=== PATIENT | male | born 1945 | race Caucasian/White ===

== ENCOUNTER 2020-03-21 15:00 | IRF | payer BC, SELFPAY ==
--- NOTE | ~2020-03-21 | CT_ITS ---
EXAMINATION: CT brain wo con EXAM DATE: 03/28/2020 10:47 INDICATION: Follow-up trauma. TECHNIQUE: Spiral CT of the head was performed without contrast. Axial, coronal and sagittal images were reviewed. The dose-length product (DLP) for this examination was 681.00 mGy-cm. The exposure w as tailored according to patient size, and iterative reconstruction (ASIR) was used as additional dos e reduction technique. There is no prior study for comparison. FINDINGS: There is a right-sided ventricular shunt entering the ventricle posteriorly, tip just cross ing the midline. The ventricles are normal in size. There are 4 other milena holes. There is hyperdense right-sided subdural hematoma, density suggesting acute component to this. This extends around the e ntire right cerebral hemisphere with maximal thickness of 1.6 cm, is causing 6 mm leftward midline sh ift, effacement of the left-sided sulci. No transtentorial herniation. There is a much smaller and lo wer density left-sided subdural hematoma, subacute appearance. Comparison with prior study would be h elpful. No mass or evidence of intraparenchymal or hematoma. There are no acute fractures identified. Sinuses and mastoid air cells are well aerated. Orbits and soft tissues unremarkable. IMPRESSION: 1. Moderate to large right-sided subdural hematoma with acute component suspected, up to 1.6 cm in t hickness with mild subfalcine herniation, midline shift. Comparison with prior study would be helpful . 2. Small subacute left subdural hematoma. 3. Right ventricular shunt in position. Reviewed, dictated and finalized at location A. IMPRESSION: 1. Moderate to large right-sided subdural hematoma with acute component suspec derrell, up to 1.6 cm in thickness with mild subfalcine herniation, midline shift. Comparison with prior study would be helpful. 2. Small subacute left subdural hematoma. 3. Right ventricular shunt in position.
--- NOTE | 2020-03-21 15:34 | ADMGEN ---
Arrived via personal vehicle with spouse at 1500. This patient, Rolan Mcwilliams, was admitted to [facility] Room 220-02. Patient/family oriented to hospital policies and general routines including ID bracelet, bed and alarms, visiting hours, pain management, procedures, bathroom and other care routines, personal items, smoking policy, room service/diet, and visiting hours. Valuables list has been completed. Information on how to activate the Rapid Response Team has been discussed. Patient/Family are encouraged to report perceived risks to care and to ask questions if they do not understand what they are told or what they should do.
[2020-03-21 16:10] VITALS: BP 147/90; PULSE 85; RESP 18; TEMP 36.9; O2SAT 95
[2020-03-21 16:11] VITALS: BMI 30.3
[2020-03-21 16:16] VITALS: BMI 30.3
[2020-03-21] MEDS: ACETAMINOPHEN 500 MG TABLET PO (17:35)
[2020-03-21] MEDS: DOCUSATE SODIUM 100 MG CAPSULE PO (17:35)
[2020-03-21 20:00] VITALS: O2SAT 94
[2020-03-21] MEDS: ATORVASTATIN 10 MG TABLET PO (21:46)
[2020-03-21] MEDS: HEPARIN SODIUM 5,000 UNITS/ML VIAL 5000 UNITS SUB-Q (21:47)
[2020-03-21] MEDS: PANTOPRAZOLE 40 MG TABLET PO (21:47)
[2020-03-21] MEDS: FENOFIBRATE NANOCRYSTALLIZED 145 MG TABLET PO (21:47)
[2020-03-21 22:00] VITALS: BP 126/65; PULSE 83; RESP 20; TEMP 36.8; O2SAT 94
[2020-03-21] MEDS: CALCIUM CARBONATE (TUMS) 500 MG (200 MG ELEMENTAL) PO (22:03)
[2020-03-22 05:19] LABS: Basophils Absolute Auto 0.1 K/mm3 (0.0-0.1); Basophils Percent Auto 0.7 % (0.2-1.2); Eosinophils Absolute Auto 0.2 K/mm3 (0-0.3); Eosinophils Percent Auto 2.2 % (0-4.4); Hematocrit 40.7 % (42.0-52.0); Hemoglobin 13.3 g/dL (14.0-18.0); Lymphocytes Absolute Auto 2.37 K/mm3 (0.9-3.2); Lymphocytes Percent Auto 23.1 % (18.3-44.2); Mean Corpuscular HGB Conc 32.7 g/dl (32-36); Mean Corpuscular Hemoglobin 28.9 pg (26-34); Mean Corpuscular Volume 88.3 fl (80-100); Mean Platelet Volume 8.7 fl (7.4-10.4); Monocytes Absolute Auto 0.9 K/mm3 (0.1-0.6); Monocytes Percent Auto 8.5 % (2.6-8.5); Neutrophils Absolute Auto 6.6 K/mm3 (1.3-6.7); Neutrophils Percent Auto 64.5 % (45.5-73.1); Platelet Count Result 427 k/mm3 (150-375); Red Blood Count 4.61 M/mm3 (4.6-6.20); Red Cell Distribution Width 12.9 % (11.5-14.5); White Blood Count 10.3 K/mm3 (4.5-10.0)
[2020-03-22 05:31] LABS: Anion Gap 8 mmol/L (8-16); Blood Urea Nitrogen 18 mg/dL (9-20); Calcium 9.4 mg/dL (8.4-10.2); Carbon Dioxide 29 mmol/L (22-30); Chloride 100 mmol/L (98-107); Estimated CRCL calculation 66 ml/min; Estimated Glomerular Filt Rate > 60; Glucose 131 mg/dL (75-110); Potassium 4.5 mmol/L (3.4-5.0); Sodium 137 mmol/L (137-145)
[2020-03-22 06:00] VITALS: BP 143/76; PULSE 88; RESP 20; TEMP 36.4; O2SAT 98
[2020-03-22] MEDS: CALCIUM CARBONATE (TUMS) 500 MG (200 MG ELEMENTAL) PO ×3 (06:42→20:55)
[2020-03-22] MEDS: HEPARIN SODIUM 5,000 UNITS/ML VIAL 5000 UNITS SUB-Q ×3 (06:43→20:54)
[2020-03-22 06:51] LABS: Glucose Point of Care 134 (65-105)
[2020-03-22 08:51] VITALS: PULSE 88
[2020-03-22] MEDS: PANTOPRAZOLE 40 MG TABLET PO ×2 (08:51→20:55)
[2020-03-22] MEDS: DOCUSATE SODIUM 100 MG CAPSULE PO ×2 (08:51→18:54)
[2020-03-22] MEDS: TAMSULOSIN HCL 0.4 MG CAPSULE PO (08:51)
[2020-03-22] MEDS: METOPROLOL SUCCINATE EXT REL 25 MG TABCR PO (08:51)
[2020-03-22] MEDS: ACETAMINOPHEN 500 MG TABLET PO ×2 (08:55→20:55)
--- NOTE | 2020-03-22 10:21 | PM.IMHP ---
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 The patient is a 74-year-old right-handed white male who is awake and alert 40 lucid and has sense of humor with a past medical history of cerebral ventriculomegaly and normal pressure hydrocephalus status post shunt placement in August of this year, hypertension, hyperlipidemia, diabetes mellitus, ventricular premature dipole rise a sen, and gastroesophageal reflux disease who presented to [facility] on March 12, 2020 with confusion after a possible fall. The patient remembered and nothing about the day and did not remember going to bed the night before presentation. Reportedly the patient crawled to the emergency department back door after a fall off his bike. There was a blood trail down the driveway according to the patient's and his glasses and bike were found on the top of a rack and. The patient also reported the patient was his usual self the day before and walk the dogs few different times and rode his bike as he does every morning. The also reported the patient went camping over the weekend and was confused the majority of the day on Thursday but was back to his usual self on Thursday morning that is prior to his emergency room visit. The CT scan showed acute on chronic bilateral subdural hematoma. Neurosurgery was consulted and the patient was admitted. The patient was given Keppra for seizure prophylaxis. She he underwent by bifrontal milena hole, right frontal and parietal, left parietal and frontal for subdural hematoma evacuation and March 12, 2020. The patient had a ZACHARIAH drain placed in the right and the left. The patient will remain at 8 inch for at least 4 weeks and likely will slowly down trained his valve setting periods the right ZACHARIAH drain was removed on March 14, 2020. The left APB drain was removed on March 15, 2020. On March 15, 2020 the patient experience dyspnea tachycardia and low-grade fever. A CTA revealed bilateral pulmonary embolisms, subcutaneous heparin was initiated and IVC filter was placed on March 16, 2020. The patient recovered well. Physical examination continues to reveal right lower extremity flaccid paralysis with new right footdrop, impaired balance decreased endurance and decreased strength. MRI of the lumbar spine was performed and showed age-appropriate spinal stenosis but not rising to the level that would account for his deficit. Neurosurgery suspected that this deficit is due to brain compression and expected to improve with time. On March 19, 2020 the patient complained of left calf pain and Doppler was ordered and imaging revealed DVT /PE suspected to be provoked by acute illness. IVC filter remains in place. The patient will be discharged to rehab on subcutaneous heparin t.i.d. for DVT prophylaxis. Patient to follow up in [facility]surgery Outpatient [facility] on March 30, 2020 at 11:[address] head to be done on the day of appointment or the day before so imaging can be reviewed in clinic. A loretta to be removed at the time. If imaging is stable and no new bleeds they will consider starting full anticoagulation to address bilateral PEs and bilateral lower extremity DVTs and removal of the IC filter. This will be managed by Hematology in which they were consulted before The patient has not traveled outside the [place] or had contact with someone who is ill that has traveled outside the [place] in the past 21 days. The patient has not traveled to an area of the [place] that is experiencing no transmission of the Coronavirus and has not had close personal contact with anyone that has. The patient does not have a fever. Th
[2020-03-22 12:50] VITALS: BMI 30.3
[2020-03-22] MEDS: HYDROcodone/acetaminophen (*CRX) 5-325 MG TABLET 1 TAB PO (13:18)
[2020-03-22 14:00] VITALS: BP 140/71; PULSE 78; RESP 20; TEMP 36.6; O2SAT 98
[2020-03-22 20:00] VITALS: O2SAT 93
[2020-03-22] MEDS: ATORVASTATIN 10 MG TABLET PO (20:54)
[2020-03-22] MEDS: FENOFIBRATE NANOCRYSTALLIZED 145 MG TABLET PO (20:55)
[2020-03-22] MEDS: SALINE 0.65% NAS SOLN 44 ML BTL 1 SPRAY NASAL (20:55)
[2020-03-22 21:34] VITALS: BP 120/52; PULSE 86; RESP 14; TEMP 36.7; O2SAT 93
[2020-03-23 06:00] VITALS: BP 148/68; PULSE 78; RESP 12; TEMP 37.1; O2SAT 98
[2020-03-23 06:48] LABS: Glucose Point of Care 123 (65-105)
[2020-03-23] MEDS: HEPARIN SODIUM 5,000 UNITS/ML VIAL 5000 UNITS SUB-Q ×3 (06:52→20:10)
[2020-03-23 09:31] VITALS: PULSE 78
[2020-03-23] MEDS: PANTOPRAZOLE 40 MG TABLET PO ×2 (09:31→20:09)
[2020-03-23] MEDS: DOCUSATE SODIUM 100 MG CAPSULE PO ×2 (09:31→17:33)
[2020-03-23] MEDS: METOPROLOL SUCCINATE EXT REL 25 MG TABCR PO (09:31)
[2020-03-23] MEDS: TAMSULOSIN HCL 0.4 MG CAPSULE PO (09:31)
--- NOTE | 2020-03-23 10:49 | RPD ---
INDIVIDUALIZED PLAN OF CARE FOR Rolan Mcwilliams Brief Synthesis of Pre-Admission Screen, Post-Admission Evaluation and Therapy Evaluations: The patient presents to rehab with acute on chronic bilateral intracranial subdural hematomas status post subdural evacuation. Comorbidities include hypertension, hyperlipidemia, gastroesophageal reflux disease, type 2 diabetes mellitus, low back pain, allergic rhinitis, benign prostatic hypertrophy, abnormal gait, pneumocephalus, normal pressure hydrocephalus, ventricular shunt, headache, bilateral DVT, bilateral PE's, IVC filter placement, right lower extremity flaccid paralysis, dyspnea on exertion 2/2 PE. The complexity of the patient's medical management, nursing, and therapy needs require an inpatient rehab hospital stay with a physician-led interdisciplinary team approach. The patient?s needs will be best met in an intensive program vs. at a lower level of care. The patient requires physician services for neurology services, medical oversight, and coordination of care. The patient needs physician monitoring and treatment of anemia, perioperative blood loss, bilateral pulmonary embolisms, monitoring for adverse reactions to new medications, monitoring of infection, pain control. The patient requires nursing services for frequent neuro checks, anticoagulation therapy, medication management and education, pressure relief and skin care management, monitoring of labs, diabetes management and education, and fall/safety precautions. Deficits include:ADLs, Balance, Endurance, Family Training/Education, Mobility, Pain Management, ROM, Safety, Strength, and Transfers. Crosscutter Rolled Glass/Case Management for: Discharge Planning and Patient/Family Counseling Physical Therapy: 5 days per week for 90 minutes. Treatments may include: Therapeutic Exercise, Gait Training, Neuromuscular Re-education, Transfer Training, Community Reintegration, Bed Mobility, Patient/Family Education, Wheelchair Mobility Group Therapy/Concurrent Therapy Rationales: -Improve attention span during functional activities in a distracted environment. -Enhance problem solving and/or adequate judgment skills during functional activities in a distracted environment. -Promote increased safety awareness in a distracted environment to reduce fall risk with functional tasks, transfers, and ambulation to allow a more safe, self-sufficient return to the home environment. -Improve dynamic balance skills to promote safety and independence with functional activities in a distracted environment for maximum gain. Occupational Therapy: 5 days per week for 90 minutes. Treatments may include: Therapeutic Exercise, Therapeutic Activity, Cognitive Training, Self-Care Transfer Training, Community Reintegration, Home Management, Patient/Family Education, Wheelchair Mobility Training, Energy Conservation Training Group Therapy/Concurrent Therapy Rationales: -Allow therapist to observe and teach generalization and carry-over of skills learned in individual therapy. -Enhance problem solving and sequencing skills during therapeutic activities in a distracted environment. -Promote increased safety awareness in a realistic setting to reduce fall risk with functional tasks due to visual and verbal distractions. -Increase functional level with ADLs, ADL transfers and use of adaptive equipment through therapeutic activities with others while promoting safety to allow a more safe, self-sufficient return home. Medical Prognosis: Good Anticipated Length of Stay: 10 days Rehab Goals: Eating Goal: 06-Independent Oral Hygiene Goal: 06-Independent Toileting Hygiene Goal: 06-Independent Shower/Bathe Self Goal: 06-Independent Upper Body Dressing Goal: 06-Independent Lower Body Dressing Goal: 06-Independent Putting On/Taking Off Footwear Goal: 06-Independent Rolling Left and Right Goal: 06-Independent Sit to Lying Goal: 06-Independent Lying to Sitting on Side of Bed Goal: 06-Independent Sit to St
--- NOTE | 2020-03-23 11:29 | WPDNEURORHBP ---
Subjective Date/time seen: 03/23/20 11:29 Interval history: this 74-year-old gentleman with a background history of having had NPH status post shunting is here after having had removal of bilateral subdural hematoma by milena holes his shunt is presently off and that needs to be resumed when he goes back for the follow-up to the Neurosurgery at the tertiary care facility the patient is supposed to be off aspirin and Coumadin for 2 weeks and that will be started on April 05, 2020 Patient is to follow up with Neurosurgery on March 30 according to the notes available for the review The patient denies any headache nausea vomiting chest pain shortness of breath fever chills sore throat Review of Systems Review of Systems: All systems reviewed & are unremarkable except as noted in HPI and below Functional Status Ambulation Ability Ability to Ambulate 10 Feet: Contact Guard Ability to Ambulate 50 Feet With 2 Turns: Contact Guard Ability to Ambulate 150 Feet: Contact Guard Ambulation Assistive Devices: Cane and Walker, Wheeled Transfers Ability Ability to Transfer In/Out of Chair: Standby Assistance Exam Const: General: comfortable and no acute distress HENMT: General nose exam: Normal nares present Mouth: Yes moist mucous membranes Eyes: General: appearance normal, both eyes and all related structures Neck: Neck: supple and no JVD Resp: Effort & Inspection: normal respiratory effort Auscultation: clear to auscultation bilaterally Cardio: Rate: regular rate Rhythm: regular rhythm GI: GI Palp: Yes Soft to palpation Auscultation: normal bowel sounds Skin: General skin exam: normal color and no rashes or lesions noted Neuro: Other: patient is awake alert well oriented however amnesia of the fall and of course followed by the subdural hematoma his leg weakness primarily right more than the left is improving overall and engage in therapy Extrem: General: normal to inspection Psych: Mental Status: mental status grossly normal Objective Data Vital Signs Vital Signs: Vital Signs - 24 hr 03/22/20 14:00 03/22/20 20:00 03/22/20 21:34 Temperature 36.6 C 36.7 C Pulse Rate 78 86 Respiratory Rate 20 14 Blood Pressure 140/71 120/52 L Pulse Oximetry 98 93 93 03/23/20 06:00 03/23/20 09:31 Temperature 37.1 C Pulse Rate 78 78 Respiratory Rate 12 Blood Pressure 148/68 H Pulse Oximetry 98 Intake/Output Intake/Output: Intake & Output 03/20/20 03/21/20 03/22/20 03/23/20 23:59 23:59 23:59 23:59 Intake Total 240 720 240 Balance 240 720 240 Meds/Results Medications: Active Medications Generic Name Dose Route Start Last Admin Trade Name Freq PRN Reason Stop Dose Admin Acetaminophen 500 mg 03/21/20 16:07 03/22/20 20:55 Tylenol Tablet PO 500 mg Q6H PRN Administration Pain, Mild Hydrocodone Bitart/Acetaminophen 1 tab 03/21/20 16:07 03/22/20 13:18 [place] 5-325 Mg PO 1 tab Q6H PRN Administration Pain, Moderate Atorvastatin Calcium 10 mg 03/21/20 21:00 03/22/20 20:54 Lipitor PO 10 mg HS LYDIA Administration Calcium Carbonate 200 mg 03/21/20 20:53 03/22/20 20:55 Tums PO 200 mg Q6H PRN Administration Indigestion Dextrose 12.5 gm 03/21/20 16:10 Dextrose 50% Syringe IV PUSH PRN PRN Hypoglycemia Protocol Docusate Sodium 100 mg 03/21/20 17:00 03/23/20 09:31 Colace Capsule PO 100 mg BID LYDIA Administration Fenofibrate 145 mg 03/21/20 21:00 03/22/20 20:55 Tricor PO 145 mg HS LYDIA Administration Glucagon 1 mg 03/21/20 16:10 Glucagon For Inj IM PRN PRN Hypoglycemia Protocol Glucose 15 gm 03/21/20 16:10 Glutose 15 PO PRN PRN Hypoglycemia Protocol Heparin Sodium (Porcine) 5,000 units 03/21/20 22:00 03/23/20 06:52 Heparin Sodium SUB-Q 5,000 units Q8HR LYDIA Administration Dextrose 1,000 mls @ 100 mls/hr 03/21/20 16:10 Dextrose 5% 1,000 Ml IVPB PRN
[2020-03-23] MEDS: HYDROcodone/acetaminophen (*CRX) 5-325 MG TABLET 1 TAB PO (13:23)
[2020-03-23 14:00] VITALS: BP 152/76; PULSE 87; RESP 20; TEMP 36.6; O2SAT 100
[2020-03-23] MEDS: ATORVASTATIN 10 MG TABLET PO (20:09)
[2020-03-23] MEDS: FENOFIBRATE NANOCRYSTALLIZED 145 MG TABLET PO (20:09)
[2020-03-23 22:12] VITALS: BP 126/59; PULSE 73; RESP 20; TEMP 36.7; O2SAT 95
[2020-03-24] MEDS: HYDROcodone/acetaminophen (*CRX) 5-325 MG TABLET 1 TAB PO ×2 (00:07→11:27)
[2020-03-24] MEDS: HEPARIN SODIUM 5,000 UNITS/ML VIAL 5000 UNITS SUB-Q ×3 (05:46→20:21)
[2020-03-24 06:00] VITALS: BP 143/55; PULSE 69; RESP 20; TEMP 36.7; O2SAT 99
[2020-03-24 06:51] LABS: Glucose Point of Care 115 (65-105)
[2020-03-24 09:06] VITALS: PULSE 69
[2020-03-24] MEDS: METOPROLOL SUCCINATE EXT REL 25 MG TABCR PO (09:06)
[2020-03-24] MEDS: PANTOPRAZOLE 40 MG TABLET PO ×2 (09:06→20:20)
[2020-03-24] MEDS: DOCUSATE SODIUM 100 MG CAPSULE PO ×2 (09:06→17:43)
[2020-03-24] MEDS: TAMSULOSIN HCL 0.4 MG CAPSULE PO (09:06)
[2020-03-24] MEDS: CALCIUM CARBONATE (TUMS) 500 MG (200 MG ELEMENTAL) PO (11:27)
--- NOTE | 2020-03-24 12:06 | WPDNEURORHBP ---
Subjective Date/time seen: 03/24/20 12:06 74 years old right-handed male admitted to the rehab with the chief complaint of brain dysfunction of traumatic in nature in addition to the history of ventriculomegaly and normal pressure hydrocephalus for which she has undergone shunt placement in August of this year, hypertension, hyperlipidemia, diabetes mellitus and GERD in addition to the history of recent fall resulting in confusion. Routine lab is normal Review of Systems Review of Systems: All systems reviewed & are unremarkable except as noted in HPI and below Functional Status Ambulation Ability Ability to Ambulate 10 Feet: Independent Ability to Ambulate 50 Feet With 2 Turns: Independent Ability to Ambulate 150 Feet: Independent Ambulation Assistive Devices: Walker, Wheeled Transfers Ability Ability to Transfer In/Out of Chair: Independent Exam Narrative: Exam Narrative: examination revealed him to be awake alert cooperative comfortable no obvious acute distress ear nose throat examination normal with with moist mucous membranes no drainage eyes normal neck is supple heart regular lungs clear abdomen soft nontender normal bowel sounds neurologically awake alert with no specific recall of the recent fall has lower extremities weakness right more than the left generally improving mental status is stable Objective Data Vital Signs Vital Signs: Vital Signs - 24 hr 03/23/20 14:00 03/23/20 22:12 03/24/20 06:00 Temperature 36.6 C 36.7 C 36.7 C Pulse Rate 87 73 69 Respiratory Rate 20 20 20 Blood Pressure 152/76 H 126/59 L 143/55 H Pulse Oximetry 100 95 99 03/24/20 09:06 Temperature Pulse Rate 69 Respiratory Rate Blood Pressure Pulse Oximetry Intake/Output Intake/Output: Intake & Output 03/21/20 03/22/20 03/23/20 03/24/20 23:59 23:59 23:59 23:59 Intake Total 240 720 720 120 Balance 240 720 720 120 Meds/Results Medications: Active Medications Generic Name Dose Route Start Last Admin Trade Name Freq PRN Reason Stop Dose Admin Acetaminophen 500 mg 03/21/20 16:07 03/22/20 20:55 Tylenol Tablet PO 500 mg Q6H PRN Administration Pain, Mild Hydrocodone Bitart/Acetaminophen 1 tab 03/21/20 16:07 03/24/20 11:27 [place] 5-325 Mg PO 1 tab Q6H PRN Administration Pain, Moderate Atorvastatin Calcium 10 mg 03/21/20 21:00 03/23/20 20:09 Lipitor PO 10 mg HS LYDIA Administration Calcium Carbonate 200 mg 03/21/20 20:53 03/24/20 11:27 Tums PO 200 mg Q6H PRN Administration Indigestion Dextrose 12.5 gm 03/21/20 16:10 Dextrose 50% Syringe IV PUSH PRN PRN Hypoglycemia Protocol Docusate Sodium 100 mg 03/21/20 17:00 03/24/20 09:06 Colace Capsule PO 100 mg BID LYDIA Administration Fenofibrate 145 mg 03/21/20 21:00 03/23/20 20:09 Tricor PO 145 mg HS LYDIA Administration Glucagon 1 mg 03/21/20 16:10 Glucagon For Inj IM PRN PRN Hypoglycemia Protocol Glucose 15 gm 03/21/20 16:10 Glutose 15 PO PRN PRN Hypoglycemia Protocol Heparin Sodium (Porcine) 5,000 units 03/21/20 22:00 03/24/20 05:46 Heparin Sodium SUB-Q 5,000 units Q8HR LYDIA Administration Dextrose 1,000 mls @ 100 mls/hr 03/21/20 16:10 Dextrose 5% 1,000 Ml IVPB PRN PRN Hypoglycemia Protocol Metoprolol Succinate 25 mg 03/22/20 09:00 03/24/20 09:06 Toprol Xl PO 25 mg DAILY LYDIA Administration Pantoprazole Sodium 40 mg 03/21/20 21:00 03/24/20 09:06 Protonix PO 40 mg Q12HR LYDIA Administration Sodium Chloride 1 spray 03/21/20 20:53 03/22/20 20:55 [place] Nasal [place] NASAL 1 spray Q6HR PRN Administration Congestion Tamsulosin HCl 0.4 mg 03/22/20 09:00 03/24/20 09:06 Flomax PO 0.4 mg DAILY LYDIA Administration Labs Labs: Laboratory Results - last 24 hr 03/24/20 05:42 POC Capillary Glucose 115 H Progress Note: A&P Assessment and Plan (1)
[2020-03-24 14:00] VITALS: BP 133/55; PULSE 92; RESP 20; TEMP 36.2; O2SAT 95
[2020-03-24] MEDS: ATORVASTATIN 10 MG TABLET PO (20:21)
[2020-03-24] MEDS: FENOFIBRATE NANOCRYSTALLIZED 145 MG TABLET PO (20:21)
[2020-03-24 21:48] VITALS: BP 116/59; PULSE 69; RESP 20; TEMP 36.9; O2SAT 97
[2020-03-25 05:28] VITALS: BP 112/58; PULSE 71; RESP 20; TEMP 36.6; O2SAT 96
[2020-03-25] MEDS: HEPARIN SODIUM 5,000 UNITS/ML VIAL 5000 UNITS SUB-Q ×3 (06:17→21:29)
[2020-03-25 08:42] VITALS: PULSE 72
[2020-03-25] MEDS: METOPROLOL SUCCINATE EXT REL 25 MG TABCR PO (08:42)
[2020-03-25] MEDS: TAMSULOSIN HCL 0.4 MG CAPSULE PO (08:42)
[2020-03-25] MEDS: DOCUSATE SODIUM 100 MG CAPSULE PO ×2 (08:42→17:51)
[2020-03-25] MEDS: PANTOPRAZOLE 40 MG TABLET PO ×2 (08:42→21:30)
[2020-03-25] MEDS: ACETAMINOPHEN 500 MG TABLET PO (09:05)
[2020-03-25 14:00] VITALS: BP 146/62; PULSE 88; RESP 20; TEMP 36.9; O2SAT 95
[2020-03-25] MEDS: FENOFIBRATE NANOCRYSTALLIZED 145 MG TABLET PO (21:30)
[2020-03-25] MEDS: ATORVASTATIN 10 MG TABLET PO (21:30)
[2020-03-25 22:00] VITALS: BP 133/60; PULSE 75; RESP 16; TEMP 36.6; O2SAT 97
[2020-03-26 06:00] VITALS: BP 132/67; PULSE 75; RESP 16; TEMP 36.8; O2SAT 99
[2020-03-26] MEDS: HEPARIN SODIUM 5,000 UNITS/ML VIAL 5000 UNITS SUB-Q ×3 (06:18→22:00)
[2020-03-26 08:31] VITALS: PULSE 76
[2020-03-26] MEDS: PANTOPRAZOLE 40 MG TABLET PO ×2 (08:31→20:16)
[2020-03-26] MEDS: TAMSULOSIN HCL 0.4 MG CAPSULE PO (08:31)
[2020-03-26] MEDS: METOPROLOL SUCCINATE EXT REL 25 MG TABCR PO (08:31)
[2020-03-26] MEDS: DOCUSATE SODIUM 100 MG CAPSULE PO ×2 (08:31→17:50)
--- NOTE | 2020-03-26 10:05 | WPDNEURORHBP ---
Subjective Date/time seen: 03/26/20 10:05 being treated on the rehab floor with chief complaint of brain dysfunction traumatic in nature in addition to the history of ventriculomegaly and normal pressure hydrocephalus for which he has undergone shunt placement additionally has hypertension hyperlipidemia Diabetes mellitus and GERD Review of Systems Review of Systems: All systems reviewed & are unremarkable except as noted in HPI and below Functional Status Ambulation Ability Ability to Ambulate 10 Feet: Independent Ability to Ambulate 50 Feet With 2 Turns: Independent Ability to Ambulate 150 Feet: Independent Ambulation Assistive Devices: Cane and Walker, Wheeled Transfers Ability Ability to Transfer In/Out of Chair: Independent Exam Narrative: Exam Narrative: awake alert cooperative in no obvious acute distress ear nose throat examination normal neck supple with no restricted range of motion there is no mucus drainage from the ear nose throat heart regular lungs clear without rhonchi abdomen nontender with normal bowel sounds neurologically he is some difficulty with remote recall has weakness in the lower extremities right more so than the left but generally improving Objective Data Vital Signs Vital Signs: Vital Signs - 24 hr 03/25/20 14:00 03/25/20 22:00 03/26/20 06:00 Temperature 36.9 C 36.6 C 36.8 C Pulse Rate 88 75 75 Respiratory Rate 20 16 16 Blood Pressure 146/62 H 133/60 132/67 Pulse Oximetry 95 97 99 03/26/20 08:31 Temperature Pulse Rate 76 Respiratory Rate Blood Pressure Pulse Oximetry Intake/Output Intake/Output: Intake & Output 03/23/20 03/24/20 03/25/20 03/26/20 23:59 23:59 23:59 23:59 Intake Total 720 600 840 240 Balance 720 600 840 240 Meds/Results Medications: Active Medications Generic Name Dose Route Start Last Admin Trade Name Freq PRN Reason Stop Dose Admin Acetaminophen 500 mg 03/21/20 16:07 03/25/20 09:05 Tylenol Tablet PO 500 mg Q6H PRN Administration Pain, Mild Hydrocodone Bitart/Acetaminophen 1 tab 03/21/20 16:07 03/24/20 11:27 [place] 5-325 Mg PO 1 tab Q6H PRN Administration Pain, Moderate Atorvastatin Calcium 10 mg 03/21/20 21:00 03/25/20 21:30 Lipitor PO 10 mg HS LYIDA Administration Calcium Carbonate 200 mg 03/21/20 20:53 03/24/20 11:27 Tums PO 200 mg Q6H PRN Administration Indigestion Dextrose 12.5 gm 03/21/20 16:10 Dextrose 50% Syringe IV PUSH PRN PRN Hypoglycemia Protocol Docusate Sodium 100 mg 03/21/20 17:00 03/26/20 08:31 Colace Capsule PO 100 mg BID LYDIA Administration Fenofibrate 145 mg 03/21/20 21:00 03/25/20 21:30 Tricor PO 145 mg HS LYDIA Administration Glucagon 1 mg 03/21/20 16:10 Glucagon For Inj IM PRN PRN Hypoglycemia Protocol Glucose 15 gm 03/21/20 16:10 Glutose 15 PO PRN PRN Hypoglycemia Protocol Heparin Sodium (Porcine) 5,000 units 03/21/20 22:00 03/26/20 06:18 Heparin Sodium SUB-Q 5,000 units Q8HR LYDIA Administration Dextrose 1,000 mls @ 100 mls/hr 03/21/20 16:10 Dextrose 5% 1,000 Ml IVPB PRN PRN Hypoglycemia Protocol Metoprolol Succinate 25 mg 03/22/20 09:00 03/26/20 08:31 Toprol Xl PO 25 mg DAILY LYDIA Administration Pantoprazole Sodium 40 mg 03/21/20 21:00 03/26/20 08:31 Protonix PO 40 mg Q12HR LYDIA Administration Sodium Chloride 1 spray 03/21/20 20:53 03/22/20 20:55 [place] Nasal [place] NASAL 1 spray Q6HR PRN Administration Congestion Tamsulosin HCl 0.4 mg 03/22/20 09:00 03/26/20 08:31 Flomax PO 0.4 mg DAILY LYDIA Administration Progress Note: A&P Assessment and Plan (1) Pulmonary embolism: Code(s): I26.99 - Other pulmonary embolism without acute cor pulmonale Status: Acute (2) Normal pressure hydrocephalus: Code(s): G91.2 - (Idiopathic) normal pressure hydrocephalus Status: Ac
[2020-03-26] MEDS: ACETAMINOPHEN 500 MG TABLET PO (10:23)
[2020-03-26 14:00] VITALS: BP 115/79; PULSE 86; RESP 16; TEMP 36.8; O2SAT 98
[2020-03-26] MEDS: FENOFIBRATE NANOCRYSTALLIZED 145 MG TABLET PO (20:16)
[2020-03-26] MEDS: ATORVASTATIN 10 MG TABLET PO (20:16)
[2020-03-26] MEDS: FLUTICASONE PROPIONATE 0.05% NA SPR 16 GM BTL (*BKC) 1 SPRAY NASAL (21:00)
[2020-03-26 22:00] VITALS: BP 132/65; PULSE 85; RESP 18; TEMP 36.8; O2SAT 96
[2020-03-26] MEDS: CALCIUM CARBONATE (TUMS) 500 MG (200 MG ELEMENTAL) PO (23:00)
[2020-03-27] MEDS: HEPARIN SODIUM 5,000 UNITS/ML VIAL 5000 UNITS SUB-Q ×3 (05:58→21:38)
[2020-03-27 06:00] VITALS: BP 106/66; PULSE 83; RESP 18; TEMP 36.8; O2SAT 98
[2020-03-27 07:48] VITALS: PULSE 78
[2020-03-27] MEDS: METOPROLOL SUCCINATE EXT REL 25 MG TABCR PO (07:48)
[2020-03-27] MEDS: DOCUSATE SODIUM 100 MG CAPSULE PO ×2 (07:48→17:16)
[2020-03-27] MEDS: PANTOPRAZOLE 40 MG TABLET PO ×2 (07:48→20:39)
[2020-03-27] MEDS: TAMSULOSIN HCL 0.4 MG CAPSULE PO (07:48)
[2020-03-27] MEDS: FLUTICASONE PROPIONATE 0.05% NA SPR 16 GM BTL (*BKC) 1 SPRAY NASAL (07:51)
--- NOTE | 2020-03-27 09:08 | PCPTNOTE ---
Rolan Mcwilliams was evaluated for a wheeled walker on 03/27/2020 by this physical therapist. The wheeled walker will resolve patient's mobility limitations and will be used for ADL's within the home. The patient can safely use the wheeled walker. ?The wheeled walker will resolve the patient?s mobility deficits, including impaired balance. Kenzie Barnes, PT, DPT
[2020-03-27] MEDS: ACETAMINOPHEN 500 MG TABLET PO ×2 (11:26→23:40)
--- NOTE | 2020-03-27 13:02 | PC.NURSE ---
Patient does not have a cruller maker machine, he will be seeing Dr. Ramirez - cruller maker machine/oncologist for follow-up for anticoagulation and IVC filter, He will need to be seen by Dr. Ramirez by thu
--- NOTE | 2020-03-27 13:43 | WPDNEURORHBP ---
Subjective Date/time seen: 03/27/20 13:43 Interval history: This pleasant 74-year-old gentleman is here status post evacuation of the bilateral subdural hematoma / traumatic and prior to have had the shunt procedures for NPH he has done very well in over acute acute rehab and almost independent according to his neurosurgeon he will need a CT scan prior to the discharge and also he has been complaining of periodic headaches not responding to Tylenol alone without any associated neurological symptoms Review of Systems Review of Systems: All systems reviewed & are unremarkable except as noted in HPI and below Functional Status Ambulation Ability Ability to Ambulate 10 Feet: Independent Ability to Ambulate 50 Feet With 2 Turns: Independent Ability to Ambulate 150 Feet: Independent Ambulation Assistive Devices: Walker, Wheeled Transfers Ability Ability to Transfer In/Out of Chair: Independent Exam Const: General: comfortable and no acute distress HENMT: General nose exam: Normal nares present Mouth: Yes moist mucous membranes Eyes: General: appearance normal, both eyes and all related structures Neck: Neck: supple and no JVD Resp: Effort & Inspection: normal respiratory effort Auscultation: clear to auscultation bilaterally Cardio: Rate: regular rate Rhythm: regular rhythm GI: GI Palp: Yes Soft to palpation Auscultation: normal bowel sounds Skin: General skin exam: normal color and no rashes or lesions noted Neuro: Other: patient is awake alert bill oriented doing very well in the rehab and almost closer to independent not any distress Extrem: General: normal to inspection Psych: Mental Status: mental status grossly normal Other: mild cognitive dysfunction which might have predated prior to his injury however it could very will also be related to the shunt procedure followed by a fall which resulted in the subdural hematoma Objective Data Vital Signs Vital Signs: Vital Signs - 24 hr 03/26/20 14:00 03/26/20 22:00 03/27/20 06:00 Temperature 36.8 C 36.8 C 36.8 C Pulse Rate 86 85 83 Respiratory Rate 16 18 18 Blood Pressure 115/79 132/65 106/66 Pulse Oximetry 98 96 98 03/27/20 07:48 Temperature Pulse Rate 78 Respiratory Rate Blood Pressure Pulse Oximetry Intake/Output Intake/Output: Intake & Output 03/24/20 03/25/20 03/26/20 03/27/20 23:59 23:59 23:59 23:59 Intake Total 600 840 720 240 Balance 600 840 720 240 Meds/Results Medications: Active Medications Generic Name Dose Route Start Last Admin Trade Name Freq PRN Reason Stop Dose Admin Acetaminophen 500 mg 03/21/20 16:07 03/27/20 11:26 Tylenol Tablet PO 500 mg Q6H PRN Administration Pain, Mild Hydrocodone Bitart/Acetaminophen 1 tab 03/21/20 16:07 03/24/20 11:27 [place] 5-325 Mg PO 1 tab Q6H PRN Administration Pain, Moderate Atorvastatin Calcium 10 mg 03/21/20 21:00 03/26/20 20:16 Lipitor PO 10 mg HS LYDIA Administration Calcium Carbonate 200 mg 03/21/20 20:53 03/26/20 23:00 Tums PO 200 mg Q6H PRN Administration Indigestion Dextrose 12.5 gm 03/21/20 16:10 Dextrose 50% Syringe IV PUSH PRN PRN Hypoglycemia Protocol Docusate Sodium 100 mg 03/21/20 17:00 03/27/20 07:48 Colace Capsule PO 100 mg BID LYDIA Administration Fenofibrate 145 mg 03/21/20 21:00 03/26/20 20:16 Tricor PO 145 mg HS LYDIA Administration Fluticasone Propionate 1 spray 03/26/20 18:25 03/27/20 07:51 Flonase 0.05% Nasal [place] NASAL 1 spray QAM LYDIA Administration Glucagon 1 mg 03/21/20 16:10 Glucagon For Inj IM PRN PRN Hypoglycemia Protocol Glucose 15 gm 03/21/20 16:10 Glutose 15 PO PRN PRN Hypoglycemia Protocol Heparin Sodium (Porcine) 5,000 units 03/21/20 22:00 03/27/20 05:58 Heparin Sodium SUB-Q 5,000 units Q8HR LYDIA Administration Dextrose 1,000 mls @ 100 mls/hr 03/21/20 16:10 Dextrose 5% 1,
[2020-03-27 14:00] VITALS: BP 122/60; PULSE 90; RESP 18; TEMP 36.3; O2SAT 98
--- NOTE | 2020-03-27 14:09 | PCDIET ---
Nutrition Follow-Up Complete: Nutrition Diagnosis: Obesity related to history of excessive energy intake as evidenced by BMI of 30.3. Nutrition Goal: Patient to consume 75% of meals or greater. Goal met. Patient consuming 75-100% of most meals on regular diet. Last recorded weight is 85.2 kg. Recommend obtaining new weight. Bowel Motility: +BM today. Labs Reviewed: Glu (115) Meds Noted: [place], Tums, Colace, Protonix Additional Notes: No documented pressure sores. Will continue to monitor with same goal. Nutrition Monitoring and Evaluation: Follow up in 7 days.
[2020-03-27] MEDS: FENOFIBRATE NANOCRYSTALLIZED 145 MG TABLET PO (20:39)
[2020-03-27] MEDS: ATORVASTATIN 10 MG TABLET PO (20:39)
[2020-03-27 22:00] VITALS: BP 123/62; PULSE 77; RESP 18; TEMP 36.8; O2SAT 96
[2020-03-28 06:00] VITALS: BP 123/71; PULSE 61; RESP 18; TEMP 36.5; O2SAT 97
[2020-03-28] MEDS: HEPARIN SODIUM 5,000 UNITS/ML VIAL 5000 UNITS SUB-Q ×3 (06:06→19:59)
[2020-03-28] MEDS: HYDROcodone/acetaminophen (*CRX) 5-325 MG TABLET 1 TAB PO (08:39)
[2020-03-28 08:40] VITALS: PULSE 64; PULSE 92; RESP 18; O2SAT 96
[2020-03-28] MEDS: PANTOPRAZOLE 40 MG TABLET PO ×2 (08:40→19:59)
[2020-03-28] MEDS: FLUTICASONE PROPIONATE 0.05% NA SPR 16 GM BTL (*BKC) 1 SPRAY NASAL (08:40)
[2020-03-28] MEDS: METOPROLOL SUCCINATE EXT REL 25 MG TABCR PO (08:40)
[2020-03-28] MEDS: TAMSULOSIN HCL 0.4 MG CAPSULE PO (08:41)
[2020-03-28] MEDS: DOCUSATE SODIUM 100 MG CAPSULE PO ×2 (08:41→17:57)
--- NOTE | 2020-03-28 12:38 | PC.NURSE ---
Called Dr. Ana aMría Beckham's office this date ([phone]) and faxed copy of Head CT scan of patient taken this morning for his review. Patient has an appointment on Monday March 30, 2020 at 11:[address] Beckham and this was confirmed in telephone conversation with his office.
[2020-03-28] MEDS: DEXAMETHASONE 4 MG TABLET PO ×2 (12:46→17:57)
[2020-03-28] MEDS: ACETAMINOPHEN 500 MG TABLET PO (13:38)
[2020-03-28 14:00] VITALS: BP 119/61; PULSE 91; RESP 18; TEMP 36.9; O2SAT 95
[2020-03-28] MEDS: CALCIUM CARBONATE (TUMS) 500 MG (200 MG ELEMENTAL) PO (15:33)
--- NOTE | 2020-03-28 16:41 | WPDNEURORHBP ---
Subjective Date/time seen: 03/28/20 16:41 Interval history: this 74-year-old gentleman is here status post milena hole evacuation of the bilateral subdural hematomas as per the recommendation of the Neurosurgery who is going to follow him on March 30 CT brain was obtained and report was sent to them he does have an acute component of subdural hematoma on the right side but free of any headache nausea vomiting chest pain shortness of breath fever chills sore throat if anything his weakness on both side has improved and his walking quite a bit The CT scan report was communicated to him in detail and he was able to understand it fairly well at my and I have started and dexamethasone and I will let the neurosurgeon decide whether they wish to continue with it or not they will then have to compare the CT scan performed here and the CT scans he has had done at the [facility] Review of Systems Review of Systems: All systems reviewed & are unremarkable except as noted in HPI and below Functional Status Ambulation Ability Ability to Ambulate 10 Feet: Independent Ability to Ambulate 50 Feet With 2 Turns: Independent Ability to Ambulate 150 Feet: Independent Ambulation Assistive Devices: Walker, Wheeled Transfers Ability Ability to Transfer In/Out of Chair: Independent Exam Const: General: comfortable and no acute distress HENMT: General nose exam: Normal nares present Mouth: Yes moist mucous membranes Eyes: General: appearance normal, both eyes and all related structures Neck: Neck: supple and no JVD Resp: Effort & Inspection: normal respiratory effort Auscultation: clear to auscultation bilaterally Cardio: Rate: regular rate Rhythm: regular rhythm GI: GI Palp: Yes Soft to palpation Auscultation: normal bowel sounds Skin: General skin exam: normal color and no rashes or lesions noted Neuro: Other: patient is awake alert well oriented not any distress his weakness has improved on both sides and he really is doing remarkably well comparing to CT scan performed few days ago Extrem: General: normal to inspection Psych: Mental Status: mental status grossly normal Objective Data Vital Signs Vital Signs: Vital Signs - 24 hr 03/27/20 22:00 03/28/20 06:00 03/28/20 08:40 Temperature 36.8 C 36.5 C Pulse Rate 77 61 64 Respiratory Rate 18 18 Blood Pressure 123/62 123/71 Pulse Oximetry 96 97 Intake/Output Intake/Output: Intake & Output 03/25/20 03/26/20 03/27/20 03/28/20 23:59 23:59 23:59 23:59 Intake Total 840 720 720 360 Balance 840 720 720 360 Meds/Results Medications: Active Medications Generic Name Dose Route Start Last Admin Trade Name Freq PRN Reason Stop Dose Admin Acetaminophen 500 mg 03/21/20 16:07 03/28/20 13:38 Tylenol Tablet PO 500 mg Q6H PRN Administration Pain, Mild Hydrocodone Bitart/Acetaminophen 1 tab 03/21/20 16:07 03/28/20 08:39 [place] 5-325 Mg PO 1 tab Q6H PRN Administration Pain, Moderate Atorvastatin Calcium 10 mg 03/21/20 21:00 03/27/20 20:39 Lipitor PO 10 mg HS LYDIA Administration Calcium Carbonate 200 mg 03/21/20 20:53 03/28/20 15:33 Tums PO 200 mg Q6H PRN Administration Indigestion Dexamethasone 4 mg 03/28/20 12:00 03/28/20 12:46 Dexamethasone Po PO 4 mg Q6HR LYDIA Administration Dextrose 12.5 gm 03/21/20 16:10 Dextrose 50% Syringe IV PUSH PRN PRN Hypoglycemia Protocol Docusate Sodium 100 mg 03/21/20 17:00 03/28/20 08:41 Colace Capsule PO 100 mg BID LYDIA Administration Fenofibrate 145 mg 03/21/20 21:00 03/27/20 20:39 Tricor PO 145 mg HS LYDIA Administration Fluticasone Propionate 1 spray 03/26/20 18:25 03/28/20 08:40 Flonase 0.05% Nasal [place] NASAL 1 spray QAM LYDIA Administration Glucagon 1 mg 03/21/20 16:10 Glucagon For Inj IM PRN PRN Hypoglycemia Protocol Glucose 15 gm 03/21/20 16:10 Glutose 15 PO PRN
[2020-03-28] MEDS: FENOFIBRATE NANOCRYSTALLIZED 145 MG TABLET PO (19:59)
[2020-03-28] MEDS: ATORVASTATIN 10 MG TABLET PO (19:59)
[2020-03-28 21:32] VITALS: BP 136/69; PULSE 87; RESP 18; TEMP 36.2; O2SAT 67
[2020-03-29 05:00] VITALS: BP 137/68; PULSE 97; RESP 20; TEMP 36.6; O2SAT 98
[2020-03-29 05:14] LABS: Basophils Percent Auto 0.2 % (0.2-1.2); Eosinophils Percent Auto 0.1 % (0-4.4); Hematocrit 38.6 % (42.0-52.0); Hemoglobin 12.7 g/dL (14.0-18.0); Immature Granulocyte Absolute 0.08 K/mm3 (0.00-0.031); Immature Granulocyte Percent A 0.6 % (0-0.5); Lymphocytes Absolute Auto 1.89 K/mm3 (0.9-3.2); Lymphocytes Percent Auto 14.3 % (18.3-44.2); Mean Corpuscular HGB Conc 32.9 g/dl (32-36); Mean Corpuscular Hemoglobin 29.1 pg (26-34); Mean Corpuscular Volume 88.3 fl (80-100); Mean Platelet Volume 8.7 fl (7.4-10.4); Monocytes Absolute Auto 0.5 K/mm3 (0.1-0.6); Monocytes Percent Auto 3.9 % (2.6-8.5); Neutrophils Absolute Auto 10.7 K/mm3 (1.3-6.7); Neutrophils Percent Auto 80.9 % (45.5-73.1); Platelet Count Result 529 k/mm3 (150-375); Red Blood Count 4.37 M/mm3 (4.6-6.20); Red Cell Distribution Width 13.1 % (11.5-14.5); White Blood Count 13.2 K/mm3 (4.5-10.0)
[2020-03-29] MEDS: HEPARIN SODIUM 5,000 UNITS/ML VIAL 5000 UNITS SUB-Q ×2 (05:16→13:07)
[2020-03-29] MEDS: DEXAMETHASONE 4 MG TABLET PO ×3 (05:16→11:44)
[2020-03-29 05:31] LABS: Anion Gap 9 mmol/L (8-16); Blood Urea Nitrogen 14 mg/dL (9-20); Calcium 9.8 mg/dL (8.4-10.2); Carbon Dioxide 28 mmol/L (22-30); Chloride 103 mmol/L (98-107); Estimated CRCL calculation 83 ml/min; Estimated Glomerular Filt Rate > 60; Glucose 136 mg/dL (75-110); Potassium 4.3 mmol/L (3.4-5.0); Sodium 140 mmol/L (137-145)
[2020-03-29 08:45] VITALS: PULSE 97
[2020-03-29] MEDS: METOPROLOL SUCCINATE EXT REL 25 MG TABCR PO (08:45)
[2020-03-29] MEDS: DOCUSATE SODIUM 100 MG CAPSULE PO (08:45)
[2020-03-29] MEDS: FLUTICASONE PROPIONATE 0.05% NA SPR 16 GM BTL (*BKC) 1 SPRAY NASAL (08:45)
[2020-03-29] MEDS: PANTOPRAZOLE 40 MG TABLET PO (08:46)
[2020-03-29] MEDS: TAMSULOSIN HCL 0.4 MG CAPSULE PO (08:46)
[2020-03-29] MEDS: CALCIUM CARBONATE (TUMS) 500 MG (200 MG ELEMENTAL) PO (08:47)
--- NOTE | 2020-03-29 10:45 | WPDNEURORHBP ---
Subjective Date/time seen: 03/29/20 10:45 Interval history: this 74-year-old was admitted after evacuation of the bilateral subdural hematoma he denies any headache nausea vomiting chest pain shortness of breath fever chills sore throat he is going to be discharged today and he has a follow-up appointment with his neurosurgeon tomorrow He looks clinically great considering the CT scan finding performed few days ago showing possible acute component of right-sided subdural hematoma this has been shared with him in detail both yesterday and today and he understand it well Review of Systems Review of Systems: All systems reviewed & are unremarkable except as noted in HPI and below Functional Status Ambulation Ability Ability to Ambulate 10 Feet: Independent Ability to Ambulate 50 Feet With 2 Turns: Independent Ability to Ambulate 150 Feet: Independent Ambulation Assistive Devices: Walker, Wheeled Transfers Ability Ability to Transfer In/Out of Chair: Independent Exam Const: General: comfortable and no acute distress HENMT: General nose exam: Normal nares present Mouth: Yes moist mucous membranes Eyes: General: appearance normal, both eyes and all related structures Neck: Neck: supple and no JVD Resp: Effort & Inspection: normal respiratory effort Auscultation: clear to auscultation bilaterally Cardio: Rate: regular rate Rhythm: regular rhythm GI: GI Palp: Yes Soft to palpation Auscultation: normal bowel sounds Skin: General skin exam: normal color and no rashes or lesions noted Neuro: Other: patient is awake alert will oriented in time place and person cranial examination normal speech and language functions are normal his strength by in bilateral extremities is excellent comparing to when he came to us and in fact clinically looks great considering the CT scan finding performed few days ago Extrem: General: normal to inspection Psych: Mental Status: mental status grossly normal Objective Data Vital Signs Vital Signs: Vital Signs - 24 hr 03/28/20 14:00 03/28/20 21:32 03/29/20 05:00 Temperature 36.9 C 36.2 C L 36.6 C Pulse Rate 91 87 97 Respiratory Rate 18 18 20 Blood Pressure 119/61 136/69 137/68 Pulse Oximetry 95 67 L 98 03/29/20 08:45 Temperature Pulse Rate 97 Respiratory Rate Blood Pressure Pulse Oximetry Intake/Output Intake/Output: Intake & Output 03/26/20 03/27/20 03/28/20 03/29/20 23:59 23:59 23:59 23:59 Intake Total 720 720 840 240 Balance 720 720 840 240 Meds/Results Medications: Active Medications Generic Name Dose Route Start Last Admin Trade Name Freq PRN Reason Stop Dose Admin Acetaminophen 500 mg 03/21/20 16:07 03/28/20 13:38 Tylenol Tablet PO 500 mg Q6H PRN Administration Pain, Mild Hydrocodone Bitart/Acetaminophen 1 tab 03/21/20 16:07 03/28/20 08:39 [place] 5-325 Mg PO 1 tab Q6H PRN Administration Pain, Moderate Atorvastatin Calcium 10 mg 03/21/20 21:00 03/28/20 19:59 Lipitor PO 10 mg HS LYDIA Administration Calcium Carbonate 200 mg 03/21/20 20:53 03/29/20 08:47 Tums PO 200 mg Q6H PRN Administration Indigestion Dexamethasone 4 mg 03/28/20 12:00 03/29/20 05:16 Dexamethasone Po PO 4 mg Q6HR LYDIA Administration Dextrose 12.5 gm 03/21/20 16:10 Dextrose 50% Syringe IV PUSH PRN PRN Hypoglycemia Protocol Docusate Sodium 100 mg 03/21/20 17:00 03/29/20 08:45 Colace Capsule PO 100 mg BID LYDIA Administration Fenofibrate 145 mg 03/21/20 21:00 03/28/20 19:59 Tricor PO 145 mg HS LYDIA Administration Fluticasone Propionate 1 spray 03/26/20 18:25 03/29/20 08:45 Flonase 0.05% Nasal [place] NASAL 1 spray QAM LYDIA Administration Glucagon 1 mg 03/21/20 16:10 Glucagon For Inj IM PRN PRN Hypoglycemia Protocol Glucose 15 gm 03/21/20 16:10 Glutose 15 PO PRN PRN Hypoglycemia Protocol Heparin Sodium (Porcine) 5,000
[2020-03-29] MEDS: ACETAMINOPHEN 500 MG TABLET PO (11:43)
--- NOTE | 2020-03-30 14:37 | PM.DS ---
DS: Admitting Diagnosis Admitting Diagnosis Admitting Diagnosis: Brain dysfunction/Traumatic DS: Discharge Diagnosis Discharge Diagnosis (1) Pulmonary embolism: Code(s): I26.99 - Other pulmonary embolism without acute cor pulmonale Status: Acute (2) Normal pressure hydrocephalus: Code(s): G91.2 - (Idiopathic) normal pressure hydrocephalus Status: Acute (3) S/P IVC filter: Code(s): Z95.828 - Presence of other vascular implants and grafts Status: Acute (4) DVT (deep venous thrombosis): Code(s): I82.409 - Acute embolism and thrombosis of unspecified deep veins of unspecified lower extremity Status: Acute (5) Status post evacuation of subdural hematoma: Code(s): Z98.890 - Other specified postprocedural states; Z86.79 - Personal history of other diseases of the circulatory system Status: Acute (6) Bilateral subdural hematomas: Code(s): S06.5X9A - Traumatic subdural hemorrhage with loss of consciousness of unspecified duration, initial encounter Status: Acute DS: Summary Hospital Course Reason for hospitalization: this 74-year-old gentleman was admitted status post evacuation of bilateral subdural hematoma and did very well in over rehab and as per instructions from the neurosurgeon the patient did have a CT scan performed which revealed possible a new evidence of subdural hematoma on the right side however the patient was clinically quite stable complaining of no headache nausea vomiting chest pain shortness of breath fever chills sore throat he did have an appointment in fact today earlier this morning following the discharge from yesterday and his exam was quite good with significant improvement is neurological deficit Hospital Course: he received the medical management PT OT and gait training and was able to achieve the following independent measures He was independent in oral hygiene, toileting, bathing, upper body dressing, lower body dressing, footwear, sitting to lying, lying to sitting, sit to stand, chair transfers, toilet transfers, car transfers, walking 10 feet, walking 50 feet even with 2 turns, walking 10 feet uneven surfaces, [place] step, 4 steps, 12 steps, picking of object, and wheelchair was not applicable the patient as mentioned above was independent in all activities of daily living he was sent home to be followed the following day that will be today earlier to see his neurosurgeon the CD of the CT scan we performed was given to the patient Time Spent with Patient Time attestation: Total time spent providing and/or coordinating discharge services: Discharge Plan Discharge Attending physician on discharge: Isael Haley Discharging Clinician: Isael Haley Patient Disposition: Home, Self-Care Activity: may shower and no driving Diet: as tolerated Wound Care Instructions: follow printed instructions Discharge Instructions: Will participate in outpatient physical therapy. Patient Instructions: Antibiotic Form, Heparin (By injection), Pain Management (GEN), Safe Use of Anticoagulants (GEN) Stand Alone Forms: General Discharge Information Follow-up/Referrals: Oleg Ramirez DO [Other] (Follow-up in 2 weeks, call for appointment) Ana María Beckham MD [Other] (Surgical Post-OP, Thursday at 11am (arrive by 10:45) F/U in NSGY clinic. Will need CT scan performed day prior or day of before appointment so may review in clinic.) Kimo Giles MD [Other] (Brief follow-up on Saturday December 19, 2020 at 12:00) Discharge Medications: New calcium carbonate 500 mg calcium (1,250 mg) Tablet,Chewable 200 mg PO Q6H PRN (Reason: Indigestion) Qty: 90 RF: 0 dexamethasone 4 mg Tablet 4 mg PO Q6HR Qty: 16 RF: 0 fluticasone propionate 50 mcg/actuation [place],Suspension 1 spray intranasal QAM Qty: 0 RF: 0 Continued acetaminophen 500 mg Tablet 500 mg PO Q6H PRN (Reason: Pain, Mild) RF: 0 atorvastatin 10 mg Tabl
== END 2020-03-29 13:30 | disposition home or self-care (01) | DRG 949 ==
PROVIDERS: Admitting Provider Psychiatry & Neurology Neurology; PCP Family Medicine; Visit Provider Psychiatry & Neurology Neurology
DX: Z48.811 Encounter for surgical aftercare following surgery on the nervous system (principal); I26.99 Other pulmonary embolism without acute cor pulmonale; G91.2 (Idiopathic) normal pressure hydrocephalus; I82.402 Acute embolism and thrombosis of unspecified deep veins of left lower extremity; S06.5X9D Traumatic subdural hemorrhage with loss of consciousness of unspecified duration, subsequent encounter; I10 Essential (primary) hypertension; E78.5 Hyperlipidemia, unspecified; E11.42 Type 2 diabetes mellitus with diabetic polyneuropathy; K21.9 Gastro-esophageal reflux disease without esophagitis; M21.371 Foot drop, right foot; M48.00 Spinal stenosis, site unspecified; N40.0 Benign prostatic hyperplasia without lower urinary tract symptoms; R26.9 Unspecified abnormalities of gait and mobility; W19.XXXD Unspecified fall, subsequent encounter; Z95.828 Presence of other vascular implants and grafts; Z85.820 Personal history of malignant melanoma of skin; Z79.4 Long term (current) use of insulin; Z98.890 Other specified postprocedural states; Z98.2 Presence of cerebrospinal fluid drainage device
CPT/HCPCS: 36415; 70450; 80048; 83036; 85025; 92523; 97110; 97116; 97161; 97166; 97530; 97535; A9270; J1644; J8540

== ENCOUNTER 2020-04-12 16:00 | IRF | payer BC, SELFPAY ==
--- NOTE | ~2020-04-12 | XR_ITS ---
EXAMINATION: XR lumbar spine 2-3V DATE: 04/13/2020 15:30 INDICATION: Low back pain TECHNIQUE: Anteroposterior and lateral views of the lumbar spine, and cone-down lateral view of the l umbosacral junction were obtained. COMPARISON: None. FINDINGS: There are 3 mm of retrolisthesis of L1 on L2, 6 mm of anterolisthesis of L4 on L5, and 2 mm of retrolisthesis of L5 on S1. There is advanced loss of intervertebral disc space height at L2-3, L 3-4, and L5-S1 and moderate loss of disc space height throughout the remainder of the lumbar spine. T he vertebral body heights are maintained. There is severe facet osteoarthritis. Small degenerative os teophytes project from the anterior endplates of multiple vertebral bodies. Calcified atherosclerosis is noted. There is an inferior vena cava filter. IMPRESSION: 1. Severe lumbar spondylosis without acute findings. Reviewed, dictated and finalized at location A.
--- NOTE | ~2020-04-12 | XR_ITS ---
EXAMINATION: XR abdomen/kub 1V INDICATION: Nausea TECHNIQUE: Supine views of the abdomen were obtained on 2 radiographs. COMPARISON: None FINDINGS: Shunt catheter tubing projects over the right abdomen and ends with its tip in the midline abdomen. The bowel gas pattern is normal. There are no dilated loops of bowel. An IVC filter is noted . There is severe lumbar spondylosis. IMPRESSION: 1. No radiographic correlate for the patient's symptoms. Reviewed, dictated and finalized at location A.
--- NOTE | 2020-04-12 16:07 | ADMGEN ---
This patient, Rolan Mcwilliams, was admitted to [facility] Room 224-02. Patient/family oriented to hospital policies and general routines including ID bracelet, bed and alarms, visiting hours, pain management, procedures, bathroom and other care routines, personal items, smoking policy, room service/diet, and visiting hours. Information on how to activate the Rapid Response Team has been discussed. Patient/Family are encouraged to report perceived risks to care and to ask questions if they do not understand what they are told or what they should do. 1600 - arrived via wheelchair van, tranfers to wheelchair with 2 assist . patient is alert and oriented x3, somewhat depressed about being ill again but enthusiastic about getting better again. will be here later
[2020-04-12 16:15] VITALS: BP 111/68; PULSE 66; RESP 18; TEMP 36.8; O2SAT 99; BMI 31.8
[2020-04-12 20:23] VITALS: BP 124/69; PULSE 81; RESP 18; TEMP 36.8; O2SAT 96
[2020-04-12] MEDS: TAMSULOSIN HCL 0.4 MG CAPSULE PO (20:47)
[2020-04-12] MEDS: DOCUSATE SODIUM 100 MG CAPSULE PO (20:47)
[2020-04-12] MEDS: HEPARIN SODIUM 5,000 UNITS/ML VIAL 5000 UNITS SUB-Q (20:48)
[2020-04-12] MEDS: levETIRAcetam 500 MG TABLET PO (20:48)
[2020-04-12] MEDS: FENOFIBRATE NANOCRYSTALLIZED 145 MG TABLET PO (20:48)
[2020-04-12] MEDS: ATORVASTATIN 10 MG TABLET PO (20:48)
[2020-04-12 21:31] VITALS: PULSE 80
[2020-04-12] MEDS: METOPROLOL TARTRATE 50 MG TAB PO (21:31)
[2020-04-13 05:19] LABS: Basophils Absolute Auto 0.1 K/mm3 (0.0-0.1); Basophils Percent Auto 0.4 % (0.2-1.2); Eosinophils Absolute Auto 0.2 K/mm3 (0-0.3); Eosinophils Percent Auto 1.9 % (0-4.4); Hematocrit 29.9 % (42.0-52.0); Hemoglobin 9.4 g/dL (14.0-18.0); Immature Granulocyte Absolute 0.31 K/mm3 (0.00-0.031); Immature Granulocyte Percent A 2.7 % (0-0.5); Lymphocytes Absolute Auto 2.22 K/mm3 (0.9-3.2); Mean Corpuscular HGB Conc 31.4 g/dl (32-36); Mean Corpuscular Hemoglobin 28.9 pg (26-34); Mean Platelet Volume 8.9 fl (7.4-10.4); Monocytes Absolute Auto 0.9 K/mm3 (0.1-0.6); Monocytes Percent Auto 7.9 % (2.6-8.5); Neutrophils Percent Auto 68.1 % (45.5-73.1); Platelet Count Result 325 k/mm3 (150-375); Red Blood Count 3.25 M/mm3 (4.6-6.20); Red Cell Distribution Width 14.5 % (11.5-14.5); White Blood Count 11.7 K/mm3 (4.5-10.0)
[2020-04-13 05:30] LABS: Potassium 3.8 mmol/L (3.4-5.0)
[2020-04-13 05:35] VITALS: BP 93/40; PULSE 72; RESP 18; TEMP 36.7; O2SAT 99
[2020-04-13 05:48] LABS: Anion Gap 5 mmol/L (8-16); Blood Urea Nitrogen 18 mg/dL (9-20); Calcium 8.4 mg/dL (8.4-10.2); Carbon Dioxide 29 mmol/L (22-30); Chloride 106 mmol/L (98-107); Estimated CRCL calculation 85 ml/min; Estimated Glomerular Filt Rate > 60; Glucose 111 mg/dL (75-110); Sodium 140 mmol/L (137-145)
[2020-04-13 06:28] VITALS: PULSE 76
[2020-04-13] MEDS: METOPROLOL TARTRATE 50 MG TAB PO ×3 (06:28→20:15)
[2020-04-13] MEDS: ACETAMINOPHEN 500 MG TABLET PO ×2 (06:30→21:45)
[2020-04-13] MEDS: ESCITALOPRAM OXALATE 10 MG TABLET PO (08:59)
[2020-04-13] MEDS: DOCUSATE SODIUM 100 MG CAPSULE PO ×2 (08:59→20:18)
[2020-04-13] MEDS: FUROSEMIDE 40 MG TABLET PO (08:59)
[2020-04-13] MEDS: PANTOPRAZOLE 40 MG TABLET PO (09:00)
[2020-04-13] MEDS: LIDOCAINE 5% PATCH 1 PATCH TOPICAL (09:00)
[2020-04-13] MEDS: HEPARIN SODIUM 5,000 UNITS/ML VIAL 5000 UNITS SUB-Q ×2 (09:00→20:19)
[2020-04-13] MEDS: levETIRAcetam 500 MG TABLET PO ×2 (09:00→20:18)
[2020-04-13] MEDS: SENNOSIDES 8.6 MG TABLET PO (09:01)
--- NOTE | 2020-04-13 11:00 | PM.IMHP ---
H&P: HPI History of Present Illness Date/Time: 04/13/20 14:22 Chief complaint: Bilateral SDH Narrative: Rolan Mcwilliams is a 74 year old male is known to me from the recent hospitalization on the acute rehab unit He is again admitted with the primary rehab impairment category of brain dysfunction/ traumatic The etiologic diagnosis is bifrontal acute on chronic bilateral subdural hematoma status post subdural in the question. The patient was seen [id number] by this examiner at 11:00 a.m. on April 07, 2020 This 74-year-old woman with prior medical history of ventricular premature depolarization, cerebral ventriculomegaly and normal pressure hydrocephalus status post ventriculoperitoneal shunt in August of 2019 who presented to [facility] on March 30, 2020 after a follow-up appointment with the treating neurosurgeon to evaluate prior shunt placement. In February 2020 the patient developed a subdural hematoma with right-sided weakness. He underwent bifrontal milena hole right frontal parietal left parietal and frontal placement of subdural hematoma evacuation on March 12, [address] Woodruff and ZACHARIAH drain was placed in the right and left sides. The patient reported his weakness and somewhat improved upper surgery. During his hospitalization the patient developed complications of bilateral DVTs and PEs. An IVC filter was placed and he was started on prophylactic subcutaneous heparin. He also received Keppra for seizure prophylaxis. At the follow-up appointment the patient had complains of mild frontal headache and head CT showed worsening of the subdural hematoma. The patient was admitted to ICU directly from the surgeon's office. The patient underwent right frontal milena hole placement for evacuation of the hematoma on March 31, 2020. Follow-up CT showed near resolution of the pneumocephalus and midline shift with no blood visualized. On April 03, 2020 and Doppler showed deep and superficial vein acute corrected occlusive and nonocclusive venous filling defects in the right distal distal iliac, common femoral, proximal Diederich femoral, femoral, popliteal gastrocnemius and great saphenous veins. For vascular surgery was consulted no urgent surgical intervention was ordered the patient had 2 episodes of confusion with bradycardia and low oxygen saturation April 04, 2020. The physicians were concerned for seizures. CT of the head showed no major changes and mild increased pneumocephalus and minimal increase in the midline shift. A CTA showed slightly increased embolic load. Keppra was administered. On April 06, 2020 and MRI of the brain revealed a small acute subdural bleed midline and anterior right cerebral hemisphere, as well as small amount of blood within posterior lateral left cerebral hemisphere which were not seen on the prior CTs due to increased sensitivity of the MRI. A CT of the head April 07, 2020 showed previously seen acute subdural bleed within the anterior midline, frontal, right cerebral hemisphere and left posterior lateral cerebral hemisphere not appreciated on the CT, no new hemorrhages appreciated, no mass effect or midline shift, ventricles stable comparable to the recent imaging and minimal trace pneumocephalus remaining. The shunt settings were checked on April 07, 2020 and remained at 8. April 11, [address] reveals stable appearing small subdural hemorrhage in the posterior parafalcine Haacke space with no new areas of intracranial hemorrhage, stable positioning of the right parietal approach ventriculostomy with significant change in the dilated lateral ventricles and 3rd ventricles and mild chronic small-vessel disease. Postoperative complications have included leukocytosis, anemia, acute kidney injury related to ATN with episodic hypertension, headaches, postoperative pain, hypertension, frequent asymptomatic PVCs, hyponatremia and hyperkalemia. The patient will require a low-salt diet and fluid restri
[2020-04-13] MEDS: CALCIUM CARBONATE (TUMS) 500 MG (200 MG ELEMENTAL) PO ×2 (13:26→18:18)
[2020-04-13 14:00] VITALS: BP 132/71; PULSE 74; RESP 20; TEMP 37.1; O2SAT 98
[2020-04-13 14:22] VITALS: BMI 31.8
[2020-04-13 15:01] VITALS: PULSE 76
[2020-04-13] MEDS: ONDANSETRON HCL ODT 4 MG TABLET PO (18:04)
--- NOTE | 2020-04-13 20:11 | PC.NURSE ---
Late entry: Patient complaining of upset stomach, gave Tums with some relief. Spoke with regarding the upset. Later patient complained again and of back pain as well and Dr. Haley ordered a Abdominal xray and spinal with both showing no acute issues. Zofran ordered and given.
[2020-04-13] MEDS: TAMSULOSIN HCL 0.4 MG CAPSULE PO (20:14)
[2020-04-13 20:15] VITALS: PULSE 68
[2020-04-13] MEDS: FENOFIBRATE NANOCRYSTALLIZED 145 MG TABLET PO (20:15)
[2020-04-13] MEDS: ATORVASTATIN 10 MG TABLET PO (20:18)
[2020-04-13 21:48] VITALS: BP 95/42; PULSE 80; RESP 20; TEMP 36.9; O2SAT 94
[2020-04-14] MEDS: HYDROcodone/acetaminophen (*CRX) 10-325 MG TABLET 1 TAB PO (03:48)
[2020-04-14 05:57] VITALS: PULSE 72
[2020-04-14] MEDS: METOPROLOL TARTRATE 50 MG TAB PO ×3 (05:57→20:46)
[2020-04-14 05:58] VITALS: BP 100/57; PULSE 80; RESP 20; TEMP 36.4; O2SAT 99
[2020-04-14 07:14] LABS: Glucose Point of Care 119 (65-105)
[2020-04-14] MEDS: ESCITALOPRAM OXALATE 10 MG TABLET PO (09:07)
[2020-04-14] MEDS: FUROSEMIDE 40 MG TABLET PO (09:07)
[2020-04-14] MEDS: HEPARIN SODIUM 5,000 UNITS/ML VIAL 5000 UNITS SUB-Q ×2 (09:07→20:45)
[2020-04-14] MEDS: DOCUSATE SODIUM 100 MG CAPSULE PO ×2 (09:07→20:45)
[2020-04-14] MEDS: LIDOCAINE 5% PATCH 1 PATCH TOPICAL (09:08)
[2020-04-14] MEDS: levETIRAcetam 500 MG TABLET PO ×2 (09:08→20:44)
[2020-04-14] MEDS: PANTOPRAZOLE 40 MG TABLET PO (09:08)
[2020-04-14] MEDS: polyethylene glycoL 3350 17 GM POWD.PACK PO (09:11)
[2020-04-14] MEDS: SENNOSIDES 8.6 MG TABLET PO (09:11)
[2020-04-14 14:00] VITALS: BP 113/60; PULSE 64; PULSE 68; RESP 16; TEMP 37.1; O2SAT 97
--- NOTE | 2020-04-14 16:36 | WPDNEURORHBP ---
Subjective Date/time seen: 04/14/20 16:36 Interval history: this 74-year-old gentleman is here the 2nd time after having had evacuation of bilateral subdural hematoma again and is also status post ventriculoperitoneal shunt for normal pressure hydrocephalus he denies any headache nausea vomiting chest pain shortness of breath fever chills sore throat the only thing is complaining is generalized weakness which he has had before Review of Systems Review of Systems: All systems reviewed & are unremarkable except as noted in HPI and below Functional Status Ambulation Ability Ability to Ambulate 10 Feet: Minimum Assistance X 1 Ambulation Assistive Devices: Walker, Wheeled Exam Narrative: Exam Narrative: patient's little fatigue and tired not any distress vital signs are stable eyes ears nose throat normal neck is supple no nuchal rigidity is noted abdomen is soft and tender extremities reveal no deformities he has generalized weakness, at times right-sided seems to be worse than the left and at times left seem to the worse but he is working with the team and is happy a looking forward to get better again Objective Data Vital Signs Vital Signs: Vital Signs - 24 hr 04/13/20 20:15 04/13/20 21:48 04/14/20 05:57 Temperature 36.9 C Pulse Rate 68 80 72 Respiratory Rate 20 Blood Pressure 95/42 L Pulse Oximetry 94 04/14/20 05:58 04/14/20 14:00 Temperature 36.4 C L 37.1 C Pulse Rate 80 64 Respiratory Rate 20 16 Blood Pressure 100/57 L 113/60 Pulse Oximetry 99 97 Intake/Output Intake/Output: Intake & Output 04/11/20 04/12/20 04/13/20 04/14/20 23:59 23:59 23:59 23:59 Intake Total 240 480 480 Balance 240 480 480 Meds/Results Medications: Active Medications Generic Name Dose Route Start Last Admin Trade Name Freq PRN Reason Stop Dose Admin Acetaminophen 500 mg 04/12/20 18:30 04/13/20 21:45 Acetaminophen 500 Mg Tablet PO 500 mg Q6H PRN Administration Pain, Mild 1-3 Hydrocodone Bitart/Acetaminophen 1 tab 04/12/20 18:30 04/14/20 03:48 Hydrocodone/Acetaminophen (*Crx) 10-325 Mg Tablet PO 1 tab Q4H PRN Administration Pain (Scale Score 7-10) Atorvastatin Calcium 10 mg 04/12/20 21:00 04/13/20 20:18 Atorvastatin 10 Mg Tablet PO 10 mg HS LYDIA Administration Bisacodyl 10 mg 04/12/20 18:30 Bisacodyl 10 Mg Suppository RECTAL DAILY PRN Constipation Calcium Carbonate 500 mg 04/12/20 18:30 04/13/20 18:18 Calcium Carbonate (Tums) 500 Mg (200 Mg Elemental) PO 500 mg TID PRN Administration Indigestion Dextrose 12.5 gm 04/13/20 14:53 Dextrose 50% 25 Gm/50 Ml Syringe IV PUSH PRN PRN Hypoglycemia Protocol Docusate Sodium 100 mg 04/12/20 21:00 04/14/20 09:07 Docusate Sodium 100 Mg Capsule PO 100 mg Q12HR LYDIA Administration Escitalopram Oxalate 10 mg 04/13/20 09:00 04/14/20 09:07 Escitalopram Oxalate 10 Mg Tablet PO 10 mg DAILY LYDIA Administration Fenofibrate 145 mg 04/12/20 21:00 04/13/20 20:15 Fenofibrate Nanocrystallized 145 Mg Tablet PO 145 mg HS LYDIA Administration Furosemide 40 mg 04/13/20 09:00 04/14/20 09:07 Furosemide 40 Mg Tablet PO 40 mg DAILY LYDIA Administration Glucagon 1 mg 04/13/20 14:53 Glucagon For Inj 1 Mg Vial IM PRN PRN Hypoglycemia Protocol Glucose 15 gm 04/13/20 14:53 Glucose Oral Gel 15 Gm Of Glucse In 37.5 Gm Tube PO PRN PRN Hypoglycemia Protocol Heparin Sodium (Porcine) 5,000 units 04/12/20 21:00 04/14/20 09:07 Heparin Sodium 5,000 Units/Ml Vial SUB-Q 5,000 units Q12HR LYDIA Administration Dextrose 1,000 mls @ 100 mls/hr 04/13/20 14:53 Dextrose 5% 1,000 Ml IVPB PRN PRN Hypoglycemia Protocol Levetiracetam 500 mg 04/12/20 21:00 04/14/20 09:08 Levetiracetam 500 Mg Tablet PO 500 mg Q12HR LYDIA Administration Lidocaine 1 patch 04/13/20 09:00 04/14/20 09:08 Lidocaine 5% Pa
[2020-04-14 20:00] VITALS: PULSE 72; RESP 18; O2SAT 96
[2020-04-14] MEDS: CALCIUM CARBONATE (TUMS) 500 MG (200 MG ELEMENTAL) PO (20:44)
[2020-04-14] MEDS: ATORVASTATIN 10 MG TABLET PO (20:44)
[2020-04-14] MEDS: FENOFIBRATE NANOCRYSTALLIZED 145 MG TABLET PO (20:45)
[2020-04-14] MEDS: TAMSULOSIN HCL 0.4 MG CAPSULE PO (20:45)
[2020-04-14 20:46] VITALS: PULSE 68
[2020-04-14 22:00] VITALS: BP 113/62; PULSE 72; RESP 18; TEMP 36.9; O2SAT 96
[2020-04-15 05:51] VITALS: PULSE 72
[2020-04-15] MEDS: METOPROLOL TARTRATE 50 MG TAB PO ×3 (05:51→19:58)
[2020-04-15 06:00] VITALS: BP 126/58; PULSE 81; RESP 17; TEMP 36.3; O2SAT 96
[2020-04-15 06:58] LABS: Glucose Point of Care 106 (65-105)
[2020-04-15] MEDS: levETIRAcetam 500 MG TABLET PO ×2 (09:34→20:01)
[2020-04-15] MEDS: FUROSEMIDE 40 MG TABLET PO (09:34)
[2020-04-15] MEDS: PANTOPRAZOLE 40 MG TABLET PO (09:34)
[2020-04-15] MEDS: HEPARIN SODIUM 5,000 UNITS/ML VIAL 5000 UNITS SUB-Q ×2 (09:34→20:01)
[2020-04-15] MEDS: LIDOCAINE 5% PATCH 1 PATCH TOPICAL (09:34)
[2020-04-15] MEDS: DOCUSATE SODIUM 100 MG CAPSULE PO ×2 (09:34→20:01)
[2020-04-15] MEDS: ESCITALOPRAM OXALATE 10 MG TABLET PO (09:34)
[2020-04-15] MEDS: SENNOSIDES 8.6 MG TABLET PO (09:36)
[2020-04-15] MEDS: HYDROcodone/acetaminophen (*CRX) 10-325 MG TABLET 1 TAB PO (10:33)
[2020-04-15 14:00] VITALS: BP 124/62; PULSE 80; RESP 18; TEMP 36.8; O2SAT 96
--- NOTE | 2020-04-15 15:41 | WPDNEURORHBP ---
Subjective Date/time seen: 04/15/20 15:41 Interval history: this 74-year-old gentleman is here after having had the evacuation of bilateral subdural hematoma which was the 2nd time he had to have it done he is also status post ventriculoperitoneal shunt for normal pressure hydrocephalus he is doing much better denies any headache nausea vomiting chest pain shortness of breath his weakness in the right and lower left lower extremity has much improved and engage in therapy Review of Systems Review of Systems: All systems reviewed & are unremarkable except as noted in HPI and below Functional Status Ambulation Ability Ability to Ambulate 10 Feet: Minimum Assistance X 1 Ambulation Assistive Devices: Parallel Bars Exam Narrative: Exam Narrative: patient is awake alert well oriented with fluent speech and improved bilateral weakness the bur hole sites on his cranium are clean and healthy no drainage is noted face symmetrical ENT examination is normal eye examination is normal lungs are clear cardiovascular examination is stable abdomen is soft nontender and extremities reveal no deformity Objective Data Vital Signs Vital Signs: Vital Signs - 24 hr 04/14/20 20:00 04/14/20 20:46 04/14/20 22:00 Temperature 36.9 C Pulse Rate 72 68 72 Respiratory Rate 18 18 Blood Pressure 113/62 Pulse Oximetry 96 96 04/15/20 05:51 04/15/20 06:00 04/15/20 14:00 Temperature 36.3 C L 36.8 C Pulse Rate 72 81 80 Respiratory Rate 17 18 Blood Pressure 126/58 L 124/62 Pulse Oximetry 96 96 Intake/Output Intake/Output: Intake & Output 04/12/20 04/13/20 04/14/20 04/15/20 23:59 23:59 23:59 23:59 Intake Total 240 480 720 480 Balance 240 480 720 480 Meds/Results Medications: Active Medications Generic Name Dose Route Start Last Admin Trade Name Freq PRN Reason Stop Dose Admin Acetaminophen 500 mg 04/12/20 18:30 04/13/20 21:45 Acetaminophen 500 Mg Tablet PO 500 mg Q6H PRN Administration Pain, Mild 1-3 Hydrocodone Bitart/Acetaminophen 1 tab 04/12/20 18:30 04/15/20 10:33 Hydrocodone/Acetaminophen (*Crx) 10-325 Mg Tablet PO 1 tab Q4H PRN Administration Pain (Scale Score 7-10) Atorvastatin Calcium 10 mg 04/12/20 21:00 04/14/20 20:44 Atorvastatin 10 Mg Tablet PO 10 mg HS LYDIA Administration Bisacodyl 10 mg 04/12/20 18:30 Bisacodyl 10 Mg Suppository RECTAL DAILY PRN Constipation Calcium Carbonate 500 mg 04/12/20 18:30 04/14/20 20:44 Calcium Carbonate (Tums) 500 Mg (200 Mg Elemental) PO 500 mg TID PRN Administration Indigestion Dextrose 12.5 gm 04/13/20 14:53 Dextrose 50% 25 Gm/50 Ml Syringe IV PUSH PRN PRN Hypoglycemia Protocol Docusate Sodium 100 mg 04/12/20 21:00 04/15/20 09:34 Docusate Sodium 100 Mg Capsule PO 100 mg Q12HR LYDIA Administration Escitalopram Oxalate 10 mg 04/13/20 09:00 04/15/20 09:34 Escitalopram Oxalate 10 Mg Tablet PO 10 mg DAILY LYDIA Administration Fenofibrate 145 mg 04/12/20 21:00 04/14/20 20:45 Fenofibrate Nanocrystallized 145 Mg Tablet PO 145 mg HS LYDIA Administration Furosemide 40 mg 04/13/20 09:00 04/15/20 09:34 Furosemide 40 Mg Tablet PO 40 mg DAILY LYDIA Administration Glucagon 1 mg 04/13/20 14:53 Glucagon For Inj 1 Mg Vial IM PRN PRN Hypoglycemia Protocol Glucose 15 gm 04/13/20 14:53 Glucose Oral Gel 15 Gm Of Glucse In 37.5 Gm Tube PO PRN PRN Hypoglycemia Protocol Heparin Sodium (Porcine) 5,000 units 04/12/20 21:00 04/15/20 09:34 Heparin Sodium 5,000 Units/Ml Vial SUB-Q 5,000 units Q12HR LYDIA Administration Dextrose 1,000 mls @ 100 mls/hr 04/13/20 14:53 Dextrose 5% 1,000 Ml IVPB PRN PRN Hypoglycemia Protocol Levetiracetam 500 mg 04/12/20 21:00 04/15/20 09:34 Levetiracetam 500 Mg Tablet PO 500 mg Q12HR LYDIA Administration Lidocaine 1 patch 04/13/20 09:00 04/15/20 09:34
[2020-04-15 16:14] VITALS: PULSE 80
[2020-04-15] MEDS: CALCIUM CARBONATE (TUMS) 500 MG (200 MG ELEMENTAL) PO ×2 (18:21→21:47)
[2020-04-15 19:58] VITALS: PULSE 84
[2020-04-15] MEDS: ATORVASTATIN 10 MG TABLET PO (19:58)
[2020-04-15] MEDS: TAMSULOSIN HCL 0.4 MG CAPSULE PO (19:58)
[2020-04-15] MEDS: FENOFIBRATE NANOCRYSTALLIZED 145 MG TABLET PO (20:02)
[2020-04-15 22:00] VITALS: BP 123/59; PULSE 88; RESP 17; TEMP 36.8; O2SAT 96
[2020-04-16] VITALS (7 sets, daily range): BP systolic 110–130; BP diastolic 58–67; PULSE 68–97; RESP 16–18; TEMP 36.6–37.1; O2SAT 96–97
[2020-04-16] MEDS: METOPROLOL TARTRATE 50 MG TAB PO ×3 (05:31→20:31)
[2020-04-16 07:01] LABS: Glucose Point of Care 121 (65-105)
[2020-04-16] MEDS: DOCUSATE SODIUM 100 MG CAPSULE PO ×2 (08:23→20:30)
[2020-04-16] MEDS: HEPARIN SODIUM 5,000 UNITS/ML VIAL 5000 UNITS SUB-Q ×2 (08:23→20:30)
[2020-04-16] MEDS: FUROSEMIDE 40 MG TABLET PO (08:23)
[2020-04-16] MEDS: levETIRAcetam 500 MG TABLET PO ×2 (08:23→20:30)
[2020-04-16] MEDS: ESCITALOPRAM OXALATE 10 MG TABLET PO (08:23)
[2020-04-16] MEDS: LIDOCAINE 5% PATCH 1 PATCH TOPICAL (08:24)
[2020-04-16] MEDS: PANTOPRAZOLE 40 MG TABLET PO (08:24)
[2020-04-16] MEDS: HYDROcodone/acetaminophen (*CRX) 10-325 MG TABLET 1 TAB PO (08:27)
[2020-04-16] MEDS: SENNOSIDES 8.6 MG TABLET PO (08:27)
--- NOTE | 2020-04-16 11:37 | RPD ---
INDIVIDUALIZED PLAN OF CARE FOR Rolan Mcwilliams Brief Synthesis of Pre-Admission Screen, Post-Admission Evaluation and Therapy Evaluations: INDIVIDUALIZED PLAN OF CARE FOR Rolan Mcwilliams The patient's individualized plan of care was reviewed on 04/13/2020 at 15:27. It was re-entered correctly 04/16/2020. Brief Synthesis of Pre-Admission Screen, Post-Admission Evaluation and Therapy Evaluations: The patient presents to rehab with bifrontal acute on chronic bilateral subdural hematoma s/p subdural evacuation. Comorbidities include S/P Leah holes/evacuation, subdural bleed, allergic rhinitis, benign prostatic hypertrophy, cerebral ventriculomegaly, elevated PSA, hypertension, gastroesophageal reflux disease, gait difficulty, hyperlipidemia, lower back pain, normal pressure hydrocephalus, persistent headaches, pneumocephalus, rectus diastasis, s/p ventriculoperitoneal shunt, type 2 diabetes mellitus, recurrent vasovagal syncope, ventricular premature depolarization, arthritis, obesity, hyponatremia, acute kidney injury related to ATN with episodic hypotension, hyperkalemia, anemia, SIADH, leukocytosis. The patient needs physician monitoring and treatment for postoperative complications of leukocytosis, anemia, acute kidney injury related to ATN with episodic hypotension, headaches, post-operative pain, hypertension, hyponatremia, hyperkalemia, post-operative anemia, monitoring for adverse reactions to new medications, monitoring of infection, and pain control. The patient requires nursing services for frequent neuro checks, anticoagulation therapy, medication management and education, pressure relief and skin care management, monitoring of labs, diabetes management and education, and fall/safety precautions. 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 Treatments may include: Therapeutic Exercise, Gait Training, Neuromuscular Re-education, Transfer Training, Community Reintegration, Bed Mobility, Patient/Family Education, Wheelchair Mobility Group Therapy/Concurrent Therapy Rationales: -Improve attention span during functional activities in a distracted environment. -Enhance problem solving and/or adequate judgment skills during functional activities in a distracted environment. -Promote increased safety awareness in a distracted environment to reduce fall risk with functional tasks, transfers, and ambulation to allow a more safe, self-sufficient return to the home environment. -Improve dynamic balance skills to promote safety and independence with functional activities in a distracted environment for maximum gain. Occupational Therapy: 5 days per week for 90 minutes. Treatments may include: Therapeutic Exercise, Therapeutic Activity, Cognitive Training, Self-Care Transfer Training, Community Reintegration, Home Management, Patient/Family Education, Wheelchair Mobility Training, Energy Conservation Training Group Therapy/Concurrent Therapy Rationales: -Allow therapist to observe and teach generalization and carry-over of skills learned in individual therapy. -Enhance problem solving and sequencing skills during therapeutic activities in a distracted environment. -Promote increased safety awareness in a realistic setting to reduce fall risk with functional tasks due to visual and verbal distractions. -Increase functional level with ADLs, ADL transfers and use of adaptive equipment through therapeutic activities with others while promoting safety to allow a more safe, self-sufficient return home. Medical Prognosis: Good Anticipated Length of Stay: 12 days Rehab Goals: Eating Goal: 06-Independent Oral Hygiene Goal: 06-Independent Toileting Hygiene Goal: 04-Supervision or Touching Assistance Shower/Bathe Self Goal: 05-Setup or Clean Up Assistance Upper Body
--- NOTE | 2020-04-16 14:43 | PCPTNOTE ---
Jessie Sheikh PTA completed an inpatient rehab wheelchair evaluation on Rolan Mcwilliams on 04/16/2020. The patient is unable to safely and independently ambulate household distances due to their current impairments. Their diagnosis is Bilateral SDH and their impairments include decreased strength, decreased endurance, decreased range of motion, decreased balance, lower extremity weakness. Rolan's weight bearing status is weight-bearing as tolerated on the bilateral lower legs. The patient demonstrates significant functional mobility limitations that impair their ability to participate in mobility-related activities of daily living (MRADLs), including toileting, feeding, dressing, grooming, and bathing in the customary locations in the home. These limitations cannot be sufficiently resolved by the use of an appropriately fitted cane or walker. It is recommended that the patient utilize a wheelchair for functional mobility within the home in order to facilitate optimal safety, independence and participation in all MRADL's and adequately access their home environment on a regular basis. The patient's home provides adequate access between rooms, maneuvering space, and surfaces to accommodate the recommended wheelchair. The use of a wheelchair for functional mobility is strongly recommended and the patient is receptive to using the wheelchair. The use of this wheelchair will significantly improve the patient's ability to participate in MRADLS and the patient will use it on a regular basis in the home. This will facilitate optimal safety, independence, and participation. The patient has demonstrated sufficient physical and mental capabilities needed to safely propel a manual wheelchair that is provided in the home during a typical day. Recommended Wheelchair Frame: STANDARD Recommended Wheelchair Size: 18 X 18 Recommended Wheelchair Cushion:STANDARD Wheelchair Leg Recommendations: BILATERAL ELEVATING SWING AWAY LEG RESTS - Elevating legrests are recommended because the patient has significant edema of the lower extremities that requires an elevating legrest. -Anti-tippers are recommended due to patient demonstrating increased risk for falls. They would benefit from anti-tippers with added safety and stabilization. - Adjustable arm height is recommended because the patient requires an arm height that is different than that which is available using non-adjustable arms. The patient spends at least 2 hours per day in the wheelchair. Jessie Sheikh PTA 04/16/2020 14:51 Evaluating Therapist Date I agree with and certify that the above recommendation is medically necessary. Referring Physician Date I agree with and certify that the above recommendation is medically necessary. Referring Physician Date
[2020-04-16] MEDS: CALCIUM CARBONATE (TUMS) 500 MG (200 MG ELEMENTAL) PO (19:08)
[2020-04-16] MEDS: FENOFIBRATE NANOCRYSTALLIZED 145 MG TABLET PO (20:30)
[2020-04-16] MEDS: ATORVASTATIN 10 MG TABLET PO (20:30)
[2020-04-16] MEDS: TAMSULOSIN HCL 0.4 MG CAPSULE PO (20:31)
[2020-04-16] MEDS: MELATONIN 3 MG TABLET PO (20:33)
[2020-04-17 05:19] VITALS: BP 106/66; PULSE 72; RESP 18; TEMP 36.5; O2SAT 96
[2020-04-17 06:44] VITALS: PULSE 72
[2020-04-17] MEDS: METOPROLOL TARTRATE 50 MG TAB PO ×3 (06:44→20:52)
[2020-04-17 06:54] LABS: Glucose Point of Care 99 (65-105)
[2020-04-17] MEDS: FUROSEMIDE 40 MG TABLET PO (07:40)
[2020-04-17] MEDS: PANTOPRAZOLE 40 MG TABLET PO (07:40)
[2020-04-17] MEDS: HEPARIN SODIUM 5,000 UNITS/ML VIAL 5000 UNITS SUB-Q ×2 (07:40→20:52)
[2020-04-17] MEDS: ESCITALOPRAM OXALATE 10 MG TABLET PO (07:40)
[2020-04-17] MEDS: DOCUSATE SODIUM 100 MG CAPSULE PO ×2 (07:40→20:51)
[2020-04-17] MEDS: levETIRAcetam 500 MG TABLET PO ×2 (07:40→20:51)
[2020-04-17] MEDS: LIDOCAINE 5% PATCH 1 PATCH TOPICAL (07:41)
[2020-04-17] MEDS: SENNOSIDES 8.6 MG TABLET PO (07:45)
--- NOTE | 2020-04-17 12:24 | WPDNEURORHBP ---
Subjective Date/time seen: 04/17/20 12:24 Interval history: this very pleasant 74-year-old is here after having had the 2nd round of he occlusion of bilateral subdural hematoma his doing fairly well denies any headache nausea vomiting chest pain shortness of breath his weakness bilaterally is improving lower extremity edema is much better he walked 23 feet and the foot drop has improved quite a bit the patient does have an appointment for the CT scan coming up in couple of days followed by an appointment with the surgeon the next day Review of Systems Review of Systems: All systems reviewed & are unremarkable except as noted in HPI and below Functional Status Ambulation Ability Ability to Ambulate 10 Feet: Minimum Assistance X 1 Ambulation Assistive Devices: Walker, Wheeled Exam Narrative: Exam Narrative: the patient is awake and alert well oriented improving and smiling has normal speech and language functions head is showing no sign of any effects from the recent removal of the hematomas neck is supple lungs are clear cardiovascular exam is negative and weakness is improving abdomen soft tender extremities reveal no deformities Objective Data Vital Signs Vital Signs: Vital Signs - 24 hr 04/16/20 14:00 04/16/20 14:54 04/16/20 20:00 Temperature 37.0 C Pulse Rate 97 68 70 Respiratory Rate 16 18 Blood Pressure 129/63 Pulse Oximetry 97 96 04/16/20 20:18 04/16/20 20:31 04/17/20 05:19 Temperature 37.1 C 36.5 C Pulse Rate 70 70 72 Respiratory Rate 18 18 Blood Pressure 110/58 L 106/66 Pulse Oximetry 96 96 04/17/20 06:44 Temperature Pulse Rate 72 Respiratory Rate Blood Pressure Pulse Oximetry Intake/Output Intake/Output: Intake & Output 04/14/20 04/15/20 04/16/20 04/17/20 23:59 23:59 23:59 23:59 Intake Total 720 720 720 480 Balance 720 720 720 480 Meds/Results Medications: Active Medications Generic Name Dose Route Start Last Admin Trade Name Freq PRN Reason Stop Dose Admin Acetaminophen 500 mg 04/12/20 18:30 04/13/20 21:45 Acetaminophen 500 Mg Tablet PO 500 mg Q6H PRN Administration Pain, Mild 1-3 Hydrocodone Bitart/Acetaminophen 1 tab 04/12/20 18:30 04/16/20 08:27 Hydrocodone/Acetaminophen (*Crx) 10-325 Mg Tablet PO 1 tab Q4H PRN Administration Pain (Scale Score 7-10) Atorvastatin Calcium 10 mg 04/12/20 21:00 04/16/20 20:30 Atorvastatin 10 Mg Tablet PO 10 mg HS LYDIA Administration Bisacodyl 10 mg 04/12/20 18:30 Bisacodyl 10 Mg Suppository RECTAL DAILY PRN Constipation Calcium Carbonate 500 mg 04/12/20 18:30 04/16/20 19:08 Calcium Carbonate (Tums) 500 Mg (200 Mg Elemental) PO 500 mg TID PRN Administration Indigestion Dextrose 12.5 gm 04/13/20 14:53 Dextrose 50% 25 Gm/50 Ml Syringe IV PUSH PRN PRN Hypoglycemia Protocol Docusate Sodium 100 mg 04/12/20 21:00 04/17/20 07:40 Docusate Sodium 100 Mg Capsule PO 100 mg Q12HR LYDIA Administration Escitalopram Oxalate 10 mg 04/13/20 09:00 04/17/20 07:40 Escitalopram Oxalate 10 Mg Tablet PO 10 mg DAILY LYDIA Administration Fenofibrate 145 mg 04/12/20 21:00 04/16/20 20:30 Fenofibrate Nanocrystallized 145 Mg Tablet PO 145 mg HS LYDIA Administration Furosemide 40 mg 04/13/20 09:00 04/17/20 07:40 Furosemide 40 Mg Tablet PO 40 mg DAILY LYDIA Administration Glucagon 1 mg 04/13/20 14:53 Glucagon For Inj 1 Mg Vial IM PRN PRN Hypoglycemia Protocol Glucose 15 gm 04/13/20 14:53 Glucose Oral Gel 15 Gm Of Glucse In 37.5 Gm Tube PO PRN PRN Hypoglycemia Protocol Heparin Sodium (Porcine) 5,000 units 04/12/20 21:00 04/17/20 07:40 Heparin Sodium 5,000 Units/Ml Vial SUB-Q 5,000 units Q12HR LYDIA Administration Dextrose 1,000 mls @ 100 mls/hr 04/13/20 14:53 Dextrose 5% 1,000 Ml IVPB PRN PRN Hypoglycemia Protocol Levetiracetam 500 mg 04/12/20 21:
[2020-04-17] MEDS: ACETAMINOPHEN 500 MG TABLET PO (13:40)
[2020-04-17 14:00] VITALS: BP 111/60; PULSE 86; RESP 16; TEMP 36.3; O2SAT 100
[2020-04-17 14:55] VITALS: PULSE 76
[2020-04-17] MEDS: CALCIUM CARBONATE (TUMS) 500 MG (200 MG ELEMENTAL) PO (19:46)
[2020-04-17] MEDS: FENOFIBRATE NANOCRYSTALLIZED 145 MG TABLET PO (20:51)
[2020-04-17] MEDS: ATORVASTATIN 10 MG TABLET PO (20:51)
[2020-04-17] MEDS: MELATONIN 3 MG TABLET PO (20:51)
[2020-04-17] MEDS: TAMSULOSIN HCL 0.4 MG CAPSULE PO (20:51)
[2020-04-17 22:00] VITALS: BP 140/55; PULSE 66; RESP 19; TEMP 36.7; O2SAT 99
[2020-04-18] VITALS (7 sets, daily range): BP systolic 108–113; BP diastolic 55–63; PULSE 66–74; RESP 17–20; TEMP 36.3–36.8; O2SAT 95–98
[2020-04-18] MEDS: METOPROLOL TARTRATE 50 MG TAB PO ×3 (06:05→20:21)
[2020-04-18 06:57] LABS: Glucose Point of Care 106 (65-105)
[2020-04-18] MEDS: DOCUSATE SODIUM 100 MG CAPSULE PO ×2 (09:36→20:09)
[2020-04-18] MEDS: ESCITALOPRAM OXALATE 10 MG TABLET PO (09:36)
[2020-04-18] MEDS: HEPARIN SODIUM 5,000 UNITS/ML VIAL 5000 UNITS SUB-Q ×2 (09:37→20:11)
[2020-04-18] MEDS: PANTOPRAZOLE 40 MG TABLET PO (09:37)
[2020-04-18] MEDS: SENNOSIDES 8.6 MG TABLET PO (09:37)
[2020-04-18] MEDS: levETIRAcetam 500 MG TABLET PO ×2 (09:37→20:10)
[2020-04-18] MEDS: LIDOCAINE 5% PATCH 1 PATCH TOPICAL (09:37)
[2020-04-18] MEDS: FUROSEMIDE 40 MG TABLET PO (09:37)
[2020-04-18] MEDS: CALCIUM CARBONATE (TUMS) 500 MG (200 MG ELEMENTAL) PO ×2 (09:38→18:33)
[2020-04-18] MEDS: HYDROcodone/acetaminophen (*CRX) 10-325 MG TABLET 1 TAB PO ×2 (11:40→20:08)
--- NOTE | 2020-04-18 12:13 | WPDNEURORHBP ---
Subjective Date/time seen: 04/18/20 12:13 Interval history: this 74-year-old gentleman is here status post evacuation of bilateral subdural hematoma 2nd time around and also status post ventriculoperitoneal shunt he denies any headache nausea vomiting chest pain shortness of breath his weakness of the lower extremities in particular are improving and is able to flex and the flex his feet bilaterally and able to take several steps He himself is quite happy with the progress he has made since he has been here 2nd time around Review of Systems Review of Systems: All systems reviewed & are unremarkable except as noted in HPI and below Functional Status Ambulation Ability Ability to Ambulate 10 Feet: Minimum Assistance X 1 Ambulation Assistive Devices: Walker, Wheeled Exam Narrative: Exam Narrative: patient is awake and alert well oriented time place and person has normal speech and language function and improving bilateral weakness including the foot drop which he had had on the right foot more so than the left and seems like it is significantly improving His cardiovascular status is stable head and neck region is unremarkable lungs are clear abdomen soft nontender extremities was no deformities Objective Data Vital Signs Vital Signs: Vital Signs - 24 hr 04/17/20 14:00 04/17/20 14:55 04/17/20 22:00 Temperature 36.3 C L 36.7 C Pulse Rate 86 76 66 Respiratory Rate 16 19 Blood Pressure 111/60 140/55 L Pulse Oximetry 100 99 04/18/20 06:00 04/18/20 06:05 Temperature 36.3 C L Pulse Rate 74 66 Respiratory Rate 17 Blood Pressure 113/63 Pulse Oximetry 95 Intake/Output Intake/Output: Intake & Output 04/15/20 04/16/20 04/17/20 04/18/20 23:59 23:59 23:59 23:59 Intake Total 720 720 960 360 Balance 720 720 960 360 Meds/Results Medications: Active Medications Generic Name Dose Route Start Last Admin Trade Name Freq PRN Reason Stop Dose Admin Acetaminophen 500 mg 04/12/20 18:30 04/17/20 13:40 Acetaminophen 500 Mg Tablet PO 500 mg Q6H PRN Administration Pain, Mild 1-3 Hydrocodone Bitart/Acetaminophen 1 tab 04/12/20 18:30 04/18/20 11:40 Hydrocodone/Acetaminophen (*Crx) 10-325 Mg Tablet PO 1 tab Q4H PRN Administration Pain (Scale Score 7-10) Atorvastatin Calcium 10 mg 04/12/20 21:00 04/17/20 20:51 Atorvastatin 10 Mg Tablet PO 10 mg HS LYDIA Administration Bisacodyl 10 mg 04/12/20 18:30 Bisacodyl 10 Mg Suppository RECTAL DAILY PRN Constipation Calcium Carbonate 500 mg 04/12/20 18:30 04/18/20 09:38 Calcium Carbonate (Tums) 500 Mg (200 Mg Elemental) PO 500 mg TID PRN Administration Indigestion Dextrose 12.5 gm 04/13/20 14:53 Dextrose 50% 25 Gm/50 Ml Syringe IV PUSH PRN PRN Hypoglycemia Protocol Docusate Sodium 100 mg 04/12/20 21:00 04/18/20 09:36 Docusate Sodium 100 Mg Capsule PO 100 mg Q12HR LYDIA Administration Escitalopram Oxalate 10 mg 04/13/20 09:00 04/18/20 09:36 Escitalopram Oxalate 10 Mg Tablet PO 10 mg DAILY LYDIA Administration Fenofibrate 145 mg 04/12/20 21:00 04/17/20 20:51 Fenofibrate Nanocrystallized 145 Mg Tablet PO 145 mg HS LYDIA Administration Furosemide 40 mg 04/13/20 09:00 04/18/20 09:37 Furosemide 40 Mg Tablet PO 40 mg DAILY LYDIA Administration Glucagon 1 mg 04/13/20 14:53 Glucagon For Inj 1 Mg Vial IM PRN PRN Hypoglycemia Protocol Glucose 15 gm 04/13/20 14:53 Glucose Oral Gel 15 Gm Of Glucse In 37.5 Gm Tube PO PRN PRN Hypoglycemia Protocol Heparin Sodium (Porcine) 5,000 units 04/12/20 21:00 04/18/20 09:37 Heparin Sodium 5,000 Units/Ml Vial SUB-Q 5,000 units Q12HR LYDIA Administration Dextrose 1,000 mls @ 100 mls/hr 04/13/20 14:53 Dextrose 5% 1,000 Ml IVPB PRN PRN Hypoglycemia Protocol Levetiracetam 500 mg 04/12/20 21:00 04/18/20 09:37 Levetiracetam 500 Mg Tablet PO 500
[2020-04-18] MEDS: MELATONIN 3 MG TABLET PO (20:11)
[2020-04-18] MEDS: FENOFIBRATE NANOCRYSTALLIZED 145 MG TABLET PO (20:11)
[2020-04-18] MEDS: TAMSULOSIN HCL 0.4 MG CAPSULE PO (20:12)
[2020-04-18] MEDS: ATORVASTATIN 10 MG TABLET PO (20:13)
[2020-04-19 05:28] VITALS: PULSE 76
[2020-04-19] MEDS: METOPROLOL TARTRATE 50 MG TAB PO ×3 (05:28→21:16)
[2020-04-19 06:00] VITALS: BP 123/60; PULSE 68; RESP 17; TEMP 36.5; O2SAT 96
[2020-04-19 06:33] LABS: Glucose Point of Care 98 (65-105)
[2020-04-19] MEDS: levETIRAcetam 500 MG TABLET PO ×2 (07:56→21:14)
[2020-04-19] MEDS: ESCITALOPRAM OXALATE 10 MG TABLET PO (07:56)
[2020-04-19 07:57] VITALS: PULSE 68
[2020-04-19] MEDS: PANTOPRAZOLE 40 MG TABLET PO (07:57)
[2020-04-19] MEDS: ACETAMINOPHEN 500 MG TABLET PO ×2 (07:57→13:23)
[2020-04-19] MEDS: DOCUSATE SODIUM 100 MG CAPSULE PO ×2 (07:57→21:14)
[2020-04-19] MEDS: FUROSEMIDE 40 MG TABLET PO (07:57)
[2020-04-19] MEDS: HEPARIN SODIUM 5,000 UNITS/ML VIAL 5000 UNITS SUB-Q ×2 (07:59→21:17)
[2020-04-19] MEDS: LIDOCAINE 5% PATCH 1 PATCH TOPICAL (09:07)
[2020-04-19] MEDS: SENNOSIDES 8.6 MG TABLET PO (09:07)
[2020-04-19 14:00] VITALS: BP 118/64; PULSE 76; RESP 20; TEMP 36.5; O2SAT 99
[2020-04-19] MEDS: CALCIUM CARBONATE (TUMS) 500 MG (200 MG ELEMENTAL) PO (18:38)
[2020-04-19] MEDS: TAMSULOSIN HCL 0.4 MG CAPSULE PO (21:14)
[2020-04-19] MEDS: ATORVASTATIN 10 MG TABLET PO (21:15)
[2020-04-19] MEDS: MELATONIN 3 MG TABLET PO (21:15)
[2020-04-19] MEDS: FENOFIBRATE NANOCRYSTALLIZED 145 MG TABLET PO (21:15)
[2020-04-19 21:16] VITALS: PULSE 80
[2020-04-19 22:00] VITALS: BP 138/57; PULSE 80; RESP 17; TEMP 36.7; O2SAT 95
[2020-04-20 05:02] LABS: Basophils Absolute Auto 0.1 K/mm3 (0.0-0.1); Basophils Percent Auto 0.7 % (0.2-1.2); Eosinophils Absolute Auto 0.3 K/mm3 (0-0.3); Eosinophils Percent Auto 3.2 % (0-4.4); Hematocrit 30.2 % (42.0-52.0); Hemoglobin 9.6 g/dL (14.0-18.0); Immature Granulocyte Absolute 0.11 K/mm3 (0.00-0.031); Immature Granulocyte Percent A 1.3 % (0-0.5); Lymphocytes Percent Auto 18.8 % (18.3-44.2); Mean Corpuscular HGB Conc 31.8 g/dl (32-36); Mean Corpuscular Hemoglobin 28.6 pg (26-34); Mean Corpuscular Volume 89.9 fl (80-100); Mean Platelet Volume 8.7 fl (7.4-10.4); Monocytes Absolute Auto 0.6 K/mm3 (0.1-0.6); Monocytes Percent Auto 7.4 % (2.6-8.5); Neutrophils Absolute Auto 5.9 K/mm3 (1.3-6.7); Neutrophils Percent Auto 68.6 % (45.5-73.1); Platelet Count Result 378 k/mm3 (150-375); Red Blood Count 3.36 M/mm3 (4.6-6.20); Red Cell Distribution Width 14.7 % (11.5-14.5); White Blood Count 8.5 K/mm3 (4.5-10.0)
[2020-04-20 05:16] LABS: Anion Gap 5 mmol/L (8-16); Blood Urea Nitrogen 14 mg/dL (9-20); Calcium 8.9 mg/dL (8.4-10.2); Carbon Dioxide 32 mmol/L (22-30); Chloride 102 mmol/L (98-107); Estimated CRCL calculation 85 ml/min; Estimated Glomerular Filt Rate > 60; Glucose 109 mg/dL (75-110); Potassium 4.2 mmol/L (3.4-5.0); Sodium 139 mmol/L (137-145)
[2020-04-20 05:57] VITALS: PULSE 76
[2020-04-20] MEDS: METOPROLOL TARTRATE 50 MG TAB PO ×3 (05:57→20:39)
[2020-04-20 06:00] VITALS: BP 132/65; PULSE 76; RESP 17; TEMP 36.5; O2SAT 94
[2020-04-20 06:42] LABS: Glucose Point of Care 110 (65-105)
[2020-04-20] MEDS: LIDOCAINE 5% PATCH 1 PATCH TOPICAL (09:07)
[2020-04-20] MEDS: HEPARIN SODIUM 5,000 UNITS/ML VIAL 5000 UNITS SUB-Q ×2 (09:08→20:39)
[2020-04-20] MEDS: DOCUSATE SODIUM 100 MG CAPSULE PO ×2 (09:08→20:38)
[2020-04-20] MEDS: PANTOPRAZOLE 40 MG TABLET PO (09:08)
[2020-04-20] MEDS: FUROSEMIDE 40 MG TABLET PO (09:08)
[2020-04-20] MEDS: ESCITALOPRAM OXALATE 10 MG TABLET PO (09:08)
[2020-04-20] MEDS: levETIRAcetam 500 MG TABLET PO ×2 (09:08→20:38)
[2020-04-20] MEDS: SENNOSIDES 8.6 MG TABLET PO (09:12)
--- NOTE | 2020-04-20 10:19 | PC.NURSE ---
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
--- NOTE | 2020-04-20 11:16 | WPDNEURORHBP ---
Subjective Date/time seen: 04/20/20 11:16 Interval history: this 74-year-old gentleman is here after having had the 2nd time removal of the subdural hematoma he did have a CT scan performed by his doctor yesterday and his going for any other doctor's appointment today to see how the situation is the patient is doing much better than the last time around he is able to walk about 70 feel for 75 feet and denies any headache nausea vomiting chest pain shortness of breath fever chills sore throat Review of Systems Review of Systems: All systems reviewed & are unremarkable except as noted in HPI and below Functional Status Ambulation Ability Ability to Ambulate 10 Feet: Contact Guard Ability to Ambulate 50 Feet With 2 Turns: Contact Guard Ambulation Assistive Devices: Walker, Wheeled Exam Narrative: Exam Narrative: the patient is awake alert will oriented times place and person has normal speech and language function normal cranial examination improving bilateral weakness and in fact the foot drop which was so obvious the last time is much better and is cooperative chest hard of the brain is unrevealing vital signs remained stable eyes nose throat normal neck is supple cardiovascular examination is stable Objective Data Vital Signs Vital Signs: Vital Signs - 24 hr 04/19/20 14:00 04/19/20 21:16 04/19/20 22:00 Temperature 36.5 C 36.7 C Pulse Rate 76 80 80 Respiratory Rate 20 17 Blood Pressure 118/64 138/57 L Pulse Oximetry 99 95 04/20/20 05:57 04/20/20 06:00 Temperature 36.5 C Pulse Rate 76 76 Respiratory Rate 17 Blood Pressure 132/65 Pulse Oximetry 94 Intake/Output Intake/Output: Intake & Output 04/17/20 04/18/20 04/19/20 04/20/20 23:59 23:59 23:59 23:59 Intake Total 960 1320 720 240 Balance 960 1320 720 240 Meds/Results Medications: Active Medications Generic Name Dose Route Start Last Admin Trade Name Freq PRN Reason Stop Dose Admin Acetaminophen 500 mg 04/12/20 18:30 04/19/20 13:23 Acetaminophen 500 Mg Tablet PO 500 mg Q6H PRN Administration Pain, Mild 1-3 Hydrocodone Bitart/Acetaminophen 1 tab 04/12/20 18:30 04/18/20 20:08 Hydrocodone/Acetaminophen (*Crx) 10-325 Mg Tablet PO 1 tab Q4H PRN Administration Pain (Scale Score 7-10) Atorvastatin Calcium 10 mg 04/12/20 21:00 04/19/20 21:15 Atorvastatin 10 Mg Tablet PO 10 mg HS LYDIA Administration Bisacodyl 10 mg 04/12/20 18:30 Bisacodyl 10 Mg Suppository RECTAL DAILY PRN Constipation Calcium Carbonate 500 mg 04/12/20 18:30 04/19/20 18:38 Calcium Carbonate (Tums) 500 Mg (200 Mg Elemental) PO 500 mg TID PRN Administration Indigestion Dextrose 12.5 gm 04/13/20 14:53 Dextrose 50% 25 Gm/50 Ml Syringe IV PUSH PRN PRN Hypoglycemia Protocol Docusate Sodium 100 mg 04/12/20 21:00 04/20/20 09:08 Docusate Sodium 100 Mg Capsule PO 100 mg Q12HR LYDIA Administration Escitalopram Oxalate 10 mg 04/13/20 09:00 04/20/20 09:08 Escitalopram Oxalate 10 Mg Tablet PO 10 mg DAILY LYDIA Administration Fenofibrate 145 mg 04/12/20 21:00 04/19/20 21:15 Fenofibrate Nanocrystallized 145 Mg Tablet PO 145 mg HS LYDIA Administration Furosemide 40 mg 04/13/20 09:00 04/20/20 09:08 Furosemide 40 Mg Tablet PO 40 mg DAILY LYDIA Administration Glucagon 1 mg 04/13/20 14:53 Glucagon For Inj 1 Mg Vial IM PRN PRN Hypoglycemia Protocol Glucose 15 gm 04/13/20 14:53 Glucose Oral Gel 15 Gm Of Glucse In 37.5 Gm Tube PO PRN PRN Hypoglycemia Protocol Heparin Sodium (Porcine) 5,000 units 04/12/20 21:00 04/20/20 09:08 Heparin Sodium 5,000 Units/Ml Vial SUB-Q 5,000 units Q12HR LYDIA Administration Dextrose 1,000 mls @ 100 mls/hr 04/13/20 14:53 Dextrose 5% 1,000 Ml IVPB PRN PRN Hypoglycemia Protocol Levetiracetam 500 mg 04/12/20 21:00 04/20/20 09:08 Levetiracetam 500 Mg Tablet PO
--- NOTE | 2020-04-20 11:17 | PCDIET ---
Nutrition Follow-Up Complete: No nutrition diagnosis at this time. Nutrition Goal: Patient to consume 75% of meals or greater. Goal met. Patient consuming 100% of most meals on regular diet which is appropriate. Patient reports good appetite and denies c/o. Last recorded weight is 89.4 kg. Recommend obtaining updated weight. Bowel Motility: Last BM on 04/19/20, per nursing flowsheet. Labs Reviewed: Hgb (9.6), Hct (30.2) Meds Noted: Clyde, Lipitor, Tums, Colace, Tricor, Lasix, Heparin, Lopressor, Protonix, Senna Additional Notes: Bilateral feet with scabs. No documented pressure ulcers. Will continue to monitor with same goal. Nutrition Monitoring and Evaluation: Follow up in 7 days.
[2020-04-20 13:35] VITALS: PULSE 78
[2020-04-20 14:00] VITALS: BP 131/56; PULSE 92; RESP 18; TEMP 36.9; O2SAT 97
--- NOTE | 2020-04-20 14:33 | PCOTNOTE ---
occupational therapy treatment not completed in afternoon due to patient out for physician appointment.
--- NOTE | 2020-04-20 15:03 | PC.NURSE ---
Addendum entered by Oxana Daily RN 04/20/20 15:23: Spoke with , she is making an appointment with Dr. Ramirez Original Note: patient returned from appointment with neurosurgeon, ,Several suggestions from Dr. Beckham: He would like someone to call him regarding the patients strength , I attempted to call and was on hold for >10 mins. The note suggested also to increase heparin 5,000 to TID until seen by fishing captain, i called Dr. Ramirez (fishing captain) and updated him on Dr. Gardiner's notes. Call was returned, He would like for the patient to be seen in the office next week before making any changes, also any further questions regarding anticoagulation can be addressed directly to him by phone, from questioning
[2020-04-20] MEDS: CALCIUM CARBONATE (TUMS) 500 MG (200 MG ELEMENTAL) PO (18:47)
[2020-04-20 20:38] VITALS: BP 93/44; PULSE 74; RESP 18; TEMP 36.6; O2SAT 99
[2020-04-20] MEDS: FENOFIBRATE NANOCRYSTALLIZED 145 MG TABLET PO (20:38)
[2020-04-20] MEDS: ATORVASTATIN 10 MG TABLET PO (20:38)
[2020-04-20 20:39] VITALS: PULSE 88
[2020-04-20] MEDS: MELATONIN 3 MG TABLET PO (20:39)
[2020-04-20] MEDS: TAMSULOSIN HCL 0.4 MG CAPSULE PO (20:39)
[2020-04-21] MEDS: CALCIUM CARBONATE (TUMS) 500 MG (200 MG ELEMENTAL) PO ×3 (01:29→20:23)
[2020-04-21 05:14] VITALS: BP 111/52; PULSE 85; RESP 18; TEMP 36.7; O2SAT 98
[2020-04-21 05:40] VITALS: PULSE 85
[2020-04-21] MEDS: METOPROLOL TARTRATE 50 MG TAB PO ×3 (05:40→20:15)
[2020-04-21 06:44] LABS: Glucose Point of Care 107 (65-105)
[2020-04-21] MEDS: ESCITALOPRAM OXALATE 10 MG TABLET PO (08:56)
[2020-04-21] MEDS: LIDOCAINE 5% PATCH 1 PATCH TOPICAL (08:56)
[2020-04-21] MEDS: levETIRAcetam 500 MG TABLET PO ×2 (08:56→20:14)
[2020-04-21] MEDS: PANTOPRAZOLE 40 MG TABLET PO (08:56)
[2020-04-21] MEDS: FUROSEMIDE 40 MG TABLET PO (08:56)
[2020-04-21] MEDS: HEPARIN SODIUM 5,000 UNITS/ML VIAL 5000 UNITS SUB-Q ×2 (08:56→20:15)
[2020-04-21] MEDS: DOCUSATE SODIUM 100 MG CAPSULE PO ×2 (08:56→20:14)
[2020-04-21] MEDS: SENNOSIDES 8.6 MG TABLET PO (08:57)
[2020-04-21] MEDS: ACETAMINOPHEN 500 MG TABLET PO (13:35)
[2020-04-21 14:00] VITALS: BP 117/61; PULSE 76; RESP 18; TEMP 36.6; O2SAT 99
--- NOTE | 2020-04-21 14:27 | WPDNEURORHBP ---
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 in addition to the documentation of cerebral ventriculomegaly with normal pressure hydrocephalus but is status post shunt placement in August of 2019, hypertension, hyperlipidemia, diabetes mellitus, and GERD, routine labs with mild anemia, receiving atorvastatin 10 mg daily he cited low cramp 10 mg daily liver transit time 500 mg q.12 hours Review of Systems Review of Systems: All systems reviewed & are unremarkable except as noted in HPI and below Functional Status Ambulation Ability Ability to Ambulate 10 Feet: Standby Assistance Ability to Ambulate 50 Feet With 2 Turns: Contact Guard Ambulation Assistive Devices: Walker, Wheeled Exam Narrative: Exam Narrative: reveals him to be awake alert cooperative, normal speech ear nose throat examination normal, heart regular, lungs clear, abdomen is soft, and neuro examination essentially unchanged Objective Data Vital Signs Vital Signs: Vital Signs - 24 hr 04/20/20 20:38 04/20/20 20:39 04/21/20 05:14 Temperature 36.6 C 36.7 C Pulse Rate 74 88 85 Respiratory Rate 18 18 Blood Pressure 93/44 L 111/52 L Pulse Oximetry 99 98 04/21/20 05:40 04/21/20 14:00 Temperature 36.6 C Pulse Rate 85 76 Respiratory Rate 18 Blood Pressure 117/61 Pulse Oximetry 99 Intake/Output Intake/Output: Intake & Output 04/18/20 04/19/20 04/20/20 04/21/20 23:59 23:59 23:59 23:59 Intake Total 1320 720 480 480 Balance 1320 720 480 480 Meds/Results Medications: Active Medications Generic Name Dose Route Start Last Admin Trade Name Freq PRN Reason Stop Dose Admin Acetaminophen 500 mg 04/12/20 18:30 04/21/20 13:35 Acetaminophen 500 Mg Tablet PO 500 mg Q6H PRN Administration Pain, Mild 1-3 Hydrocodone Bitart/Acetaminophen 1 tab 04/12/20 18:30 04/18/20 20:08 Hydrocodone/Acetaminophen (*Crx) 10-325 Mg Tablet PO 1 tab Q4H PRN Administration Pain (Scale Score 7-10) Atorvastatin Calcium 10 mg 04/12/20 21:00 04/20/20 20:38 Atorvastatin 10 Mg Tablet PO 10 mg HS LYDIA Administration Bisacodyl 10 mg 04/12/20 18:30 Bisacodyl 10 Mg Suppository RECTAL DAILY PRN Constipation Calcium Carbonate 500 mg 04/12/20 18:30 04/21/20 05:26 Calcium Carbonate (Tums) 500 Mg (200 Mg Elemental) PO 500 mg TID PRN Administration Indigestion Dextrose 12.5 gm 04/13/20 14:53 Dextrose 50% 25 Gm/50 Ml Syringe IV PUSH PRN PRN Hypoglycemia Protocol Docusate Sodium 100 mg 04/12/20 21:00 04/21/20 08:56 Docusate Sodium 100 Mg Capsule PO 100 mg Q12HR LYDIA Administration Escitalopram Oxalate 10 mg 04/13/20 09:00 04/21/20 08:56 Escitalopram Oxalate 10 Mg Tablet PO 10 mg DAILY LYDIA Administration Fenofibrate 145 mg 04/12/20 21:00 04/20/20 20:38 Fenofibrate Nanocrystallized 145 Mg Tablet PO 145 mg HS LYDIA Administration Furosemide 40 mg 04/13/20 09:00 04/21/20 08:56 Furosemide 40 Mg Tablet PO 40 mg DAILY LYDIA Administration Glucagon 1 mg 04/13/20 14:53 Glucagon For Inj 1 Mg Vial IM PRN PRN Hypoglycemia Protocol Glucose 15 gm 04/13/20 14:53 Glucose Oral Gel 15 Gm Of Glucse In 37.5 Gm Tube PO PRN PRN Hypoglycemia Protocol Heparin Sodium (Porcine) 5,000 units 04/12/20 21:00 04/21/20 08:56 Heparin Sodium 5,000 Units/Ml Vial SUB-Q 5,000 units Q12HR LYDIA Administration Dextrose 1,000 mls @ 100 mls/hr 04/13/20 14:53 Dextrose 5% 1,000 Ml IVPB PRN PRN Hypoglycemia Protocol Levetiracetam 500 mg 04/12/20 21:00 04/21/20 08:56 Levetiracetam 500 Mg Tablet PO 500 mg Q12HR LYDIA Administration Lidocaine 1 patch 04/13/20 09:00 04/21/20 08:56 Lidocaine 5% Patch TOPICAL 1 patch DAILY LYDIA Administration Melatonin 3 mg 04/16/20 21:00 04/20/20 20:39 Melatonin 3 Mg Tablet PO 3
[2020-04-21 15:01] VITALS: PULSE 76
[2020-04-21 20:00] VITALS: BP 113/44; PULSE 66; RESP 20; TEMP 36.6; O2SAT 96
[2020-04-21] MEDS: ATORVASTATIN 10 MG TABLET PO (20:14)
[2020-04-21] MEDS: MELATONIN 3 MG TABLET PO (20:14)
[2020-04-21] MEDS: TAMSULOSIN HCL 0.4 MG CAPSULE PO (20:14)
[2020-04-21] MEDS: FENOFIBRATE NANOCRYSTALLIZED 145 MG TABLET PO (20:14)
[2020-04-21 23:56] LABS: Add Urine Microscopic? YES; Appearance Urine Clear (Clear); Bacteria Urine Trace /hpf; Bilirubin Urine Negative (Negative); Blood Urine Negative (Negative); Color Urine Yellow (Yellow); Glucose Urine UA Negative (Negative); Ketones Urine Negative (Negative); Leukocyte Esterase Ur Negative LEU/UL (Negative); Mucus Urine Few /lpf; Nitrate Urine Negative (Negative); Protein Urine Negative (Negative); Specific Grav Ur 1.012 (1.001-1.035); WBC Urine 0-3 /hpf
[2020-04-22 04:39] VITALS: BP 112/47; PULSE 76; RESP 18; TEMP 36.7; O2SAT 96
[2020-04-22 06:35] VITALS: PULSE 76
[2020-04-22] MEDS: METOPROLOL TARTRATE 50 MG TAB PO ×3 (06:35→20:23)
[2020-04-22 06:54] LABS: Glucose Point of Care 114 (65-105)
[2020-04-22] MEDS: ESCITALOPRAM OXALATE 10 MG TABLET PO (09:26)
[2020-04-22] MEDS: DOCUSATE SODIUM 100 MG CAPSULE PO ×2 (09:26→20:22)
[2020-04-22] MEDS: LIDOCAINE 5% PATCH 1 PATCH TOPICAL (09:26)
[2020-04-22] MEDS: PANTOPRAZOLE 40 MG TABLET PO (09:26)
[2020-04-22] MEDS: FUROSEMIDE 40 MG TABLET PO (09:27)
[2020-04-22] MEDS: HEPARIN SODIUM 5,000 UNITS/ML VIAL 5000 UNITS SUB-Q ×2 (09:27→20:23)
[2020-04-22] MEDS: levETIRAcetam 500 MG TABLET PO ×2 (09:27→20:23)
[2020-04-22] MEDS: SENNOSIDES 8.6 MG TABLET PO (09:28)
[2020-04-22] MEDS: ACETAMINOPHEN 500 MG TABLET PO (09:29)
[2020-04-22 13:04] VITALS: PULSE 76
[2020-04-22 14:00] VITALS: BP 133/73; PULSE 62; RESP 18; TEMP 36.4; O2SAT 100
--- NOTE | 2020-04-22 14:03 | WPDREHABHP ---
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 Patient he does have a history of hypertension, hyperlipidemia, diabetes mellitus, and GERD, on today's visit it was reported by the nurse that they have noted some changes in personality, medications were reviewed is already receiving the antidepressant medication I will observe him for the next 24 to 48 hours before adding any other medication. UA is negative Chief complaint: Bilateral SDH Narrative: Rolan Mcwilliams is a 74 year old male Review of Systems Review of Systems All systems reviewed & are unremarkable except as noted in HPI and below PMFSH Past Medical History Medical History (Updated 04/13/20 @ 14:43 by Isael Haley MD) Bilateral subdural hematomas DVT (deep venous thrombosis) Normal pressure hydrocephalus PE (physical exam), annual Surgical History Surgical History (Updated 04/18/20 @ 12:15 by Iasel Haley MD) S/P [employer] shunt Status post evacuation of subdural hematoma Family History Family History Sibling Acute myocardial infarction Diabetes mellitus Hypertension Mother Acute myocardial infarction Cerebrovascular accident Congestive heart failure Hypertension Father Pancreas cancer Hypertension Social History Social History Smoking status: Never smoker Second hand tobacco smoke exposure: No Alcohol intake: current Drinks per week: 1 Substance use: never Gender identity (if verbalized by the patient): Male Spiritual care concerns: No Meds Home Medications and Allergies Home Medications Medication Instructions Recorded Confirmed Type acetaminophen 500 mg PO Q6H PRN 03/21/20 04/12/20 History atorvastatin 10 mg PO HS #30 tablet 03/29/20 04/12/20 Rx docusate sodium 100 mg PO BID #60 cap 03/29/20 04/12/20 Rx fenofibrate nanocrystallized 145 mg PO HS #30 tablet 03/29/20 04/12/20 Rx [Tricor] bisacodyl [Dulcolax (bisacodyl)] 10 mg AK DAILY PRN 04/12/20 04/12/20 History calcium carbonate 500 mg PO TID PRN 04/12/20 04/12/20 History escitalopram oxalate [Lexapro] 10 mg PO DAILY 04/12/20 04/12/20 History furosemide [Lasix] 40 mg PO DAILY 04/12/20 04/12/20 History heparin (porcine) 5,000 unit SUBCUT Q12H 04/12/20 04/12/20 History hydrocodone-acetaminophen 1 tablet PO Q4H PRN 04/12/20 04/12/20 History levetiracetam [Keppra] 500 mg PO BID 04/12/20 04/12/20 History lidocaine [Blue-Emu Lidocaine 1 patch TOPICAL Q24H 04/12/20 04/12/20 History Patch] metoprolol tartrate 50 mg PO Q8H 04/12/20 04/12/20 History pantoprazole 40 mg PO QAM 04/12/20 04/12/20 History polyethylene glycol 3350 17 g PO DAILY PRN 04/12/20 04/12/20 History sennosides [Senna Lax] 8.6 mg PO DAILY 04/12/20 04/12/20 History tamsulosin 0.4 mg PO HS 04/12/20 04/12/20 History Allergies Allergy/AdvReac Type Severity Reaction Status Date / Time No Known Allergies Allergy Verified 03/21/20 16:12 Vital Signs Vital Signs - 24 hr 04/21/20 15:01 04/21/20 20:00 04/22/20 04:39 Temperature 36.6 C 36.7 C Pulse Rate 76 66 76 Respiratory Rate 20 18 Blood Pressure 113/44 L 112/47 L Pulse Oximetry 96 96 04/22/20 06:35 04/22/20 13:04 Temperature Pulse Rate 76 76 Respiratory Rate Blood Pressure Pulse Oximetry Exam Narrative Exam Narrative: on examination today he is awake alert cooperative follows instructions fairly well. His speech nor dysphasic no dysarthric nor dysphonic. Neck is supple. Heart regular. Lungs clear without rhonchi. Abdomen is soft nontender. And neuro examination is essentially unchanged. Discussed the situation with him and he was involved in the
[2020-04-22] MEDS: FENOFIBRATE NANOCRYSTALLIZED 145 MG TABLET PO (20:22)
[2020-04-22] MEDS: MELATONIN 3 MG TABLET PO (20:22)
[2020-04-22] MEDS: ATORVASTATIN 10 MG TABLET PO (20:22)
[2020-04-22 20:23] VITALS: PULSE 66
[2020-04-22] MEDS: TAMSULOSIN HCL 0.4 MG CAPSULE PO (20:23)
[2020-04-22] MEDS: CALCIUM CARBONATE (TUMS) 500 MG (200 MG ELEMENTAL) PO (21:23)
[2020-04-22 22:00] VITALS: BP 122/67; PULSE 84; RESP 18; TEMP 36.6; O2SAT 97
[2020-04-23 05:27] VITALS: PULSE 84
[2020-04-23] MEDS: METOPROLOL TARTRATE 50 MG TAB PO ×3 (05:27→21:34)
[2020-04-23 06:00] VITALS: BP 118/49; PULSE 63; RESP 18; TEMP 36.6; O2SAT 96
[2020-04-23 06:44] LABS: Glucose Point of Care 102 (65-105)
[2020-04-23] MEDS: DOCUSATE SODIUM 100 MG CAPSULE PO ×2 (08:46→20:28)
[2020-04-23] MEDS: ESCITALOPRAM OXALATE 10 MG TABLET PO (08:46)
[2020-04-23] MEDS: FUROSEMIDE 40 MG TABLET PO (08:47)
[2020-04-23] MEDS: PANTOPRAZOLE 40 MG TABLET PO (08:47)
[2020-04-23] MEDS: HEPARIN SODIUM 5,000 UNITS/ML VIAL 5000 UNITS SUB-Q ×2 (08:47→20:21)
[2020-04-23] MEDS: levETIRAcetam 500 MG TABLET PO ×2 (08:47→20:20)
[2020-04-23] MEDS: LIDOCAINE 5% PATCH 1 PATCH TOPICAL (08:48)
[2020-04-23] MEDS: SENNOSIDES 8.6 MG TABLET PO (09:02)
[2020-04-23] MEDS: CALCIUM CARBONATE (TUMS) 500 MG (200 MG ELEMENTAL) PO ×2 (09:30→20:34)
[2020-04-23 14:00] VITALS: BP 121/59; PULSE 68; RESP 18; TEMP 36.2; O2SAT 100
[2020-04-23 15:00] VITALS: PULSE 68
[2020-04-23] MEDS: MELATONIN 3 MG TABLET PO (20:20)
[2020-04-23] MEDS: FENOFIBRATE NANOCRYSTALLIZED 145 MG TABLET PO (20:20)
[2020-04-23] MEDS: ATORVASTATIN 10 MG TABLET PO (20:20)
[2020-04-23] MEDS: TAMSULOSIN HCL 0.4 MG CAPSULE PO (20:21)
[2020-04-23 20:57] VITALS: BP 115/57; PULSE 76; RESP 18; TEMP 36.6; O2SAT 97
[2020-04-23 21:34] VITALS: PULSE 76
[2020-04-24 05:05] VITALS: BP 114/49; PULSE 76; RESP 18; TEMP 36.4; O2SAT 97
[2020-04-24 05:35] VITALS: PULSE 76
[2020-04-24] MEDS: METOPROLOL TARTRATE 50 MG TAB PO ×3 (05:35→20:15)
[2020-04-24 06:42] LABS: Glucose Point of Care 97 (65-105)
[2020-04-24] MEDS: FUROSEMIDE 40 MG TABLET PO (08:55)
[2020-04-24] MEDS: levETIRAcetam 500 MG TABLET PO ×2 (08:55→20:15)
[2020-04-24] MEDS: DOCUSATE SODIUM 100 MG CAPSULE PO ×2 (08:55→20:15)
[2020-04-24] MEDS: ESCITALOPRAM OXALATE 10 MG TABLET PO (08:55)
[2020-04-24] MEDS: HEPARIN SODIUM 5,000 UNITS/ML VIAL 5000 UNITS SUB-Q ×2 (08:55→20:14)
[2020-04-24] MEDS: PANTOPRAZOLE 40 MG TABLET PO (08:55)
[2020-04-24] MEDS: LIDOCAINE 5% PATCH 1 PATCH TOPICAL (08:56)
[2020-04-24] MEDS: SENNOSIDES 8.6 MG TABLET PO (09:00)
[2020-04-24] MEDS: CALCIUM CARBONATE (TUMS) 500 MG (200 MG ELEMENTAL) PO ×3 (09:33→23:39)
[2020-04-24 13:57] VITALS: PULSE 76
[2020-04-24] MEDS: ACETAMINOPHEN 500 MG TABLET PO (13:57)
[2020-04-24 14:00] VITALS: BP 124/56; PULSE 73; RESP 20; TEMP 36.4; O2SAT 100
--- NOTE | 2020-04-24 17:37 | WPDNEURORHBP ---
Subjective Date/time seen: 04/24/20 17:37 74 years old admitted to the rehab floor with traumatic brain dysfunction in addition trent ventriculomegaly without the diagnosis of normal pressure hydrocephalus and also history of hypertension ,hyperlipidemia, diabetes mellitus, GERD remains stable has no specific complaints Review of Systems Review of Systems: All systems reviewed & are unremarkable except as noted in HPI and below Functional Status Ambulation Ability Ability to Ambulate 10 Feet: Standby Assistance Ability to Ambulate 50 Feet With 2 Turns: Standby Assistance Ability to Ambulate 150 Feet: Contact Guard Ambulation Assistive Devices: Walker, Wheeled Transfers Ability Ability to Transfer In/Out of Chair: Standby Assistance Exam Narrative: Exam Narrative: on examination he is awake alert cooperative,his speech not dysphasic not dysarthric not dysphonic, neck is supple, heart regular ,lungs clear, abdomen is soft ,neuro exam is essentially unchanged, is more cooperative more understanding Objective Data Vital Signs Vital Signs: Vital Signs - 24 hr 04/23/20 20:57 04/23/20 21:34 04/24/20 05:05 Temperature 36.6 C 36.4 C Pulse Rate 76 76 76 Respiratory Rate 18 18 Blood Pressure 115/57 L 114/49 L Pulse Oximetry 97 97 04/24/20 05:35 04/24/20 13:57 04/24/20 14:00 Temperature 36.4 C Pulse Rate 76 76 73 Respiratory Rate 20 Blood Pressure 124/56 L Pulse Oximetry 100 Intake/Output Intake/Output: Intake & Output 04/21/20 04/22/20 04/23/20 04/24/20 23:59 23:59 23:59 23:59 Intake Total 149 511 1443 480 Balance 357 751 7355 480 Meds/Results Medications: Active Medications Generic Name Dose Route Start Last Admin Trade Name Freq PRN Reason Stop Dose Admin Acetaminophen 500 mg 04/12/20 18:30 04/24/20 13:57 Acetaminophen 500 Mg Tablet PO 500 mg Q6H PRN Administration Pain, Mild 1-3 Atorvastatin Calcium 10 mg 04/12/20 21:00 04/23/20 20:20 Atorvastatin 10 Mg Tablet PO 10 mg HS LYDIA Administration Bisacodyl 10 mg 04/12/20 18:30 Bisacodyl 10 Mg Suppository RECTAL DAILY PRN Constipation Calcium Carbonate 500 mg 04/12/20 18:30 04/24/20 17:10 Calcium Carbonate (Tums) 500 Mg (200 Mg Elemental) PO 500 mg TID PRN Administration Indigestion Dextrose 12.5 gm 04/13/20 14:53 Dextrose 50% 25 Gm/50 Ml Syringe IV PUSH PRN PRN Hypoglycemia Protocol Docusate Sodium 100 mg 04/12/20 21:00 04/24/20 08:55 Docusate Sodium 100 Mg Capsule PO 100 mg Q12HR LYDIA Administration Escitalopram Oxalate 10 mg 04/13/20 09:00 04/24/20 08:55 Escitalopram Oxalate 10 Mg Tablet PO 10 mg DAILY LYDIA Administration Fenofibrate 145 mg 04/12/20 21:00 04/23/20 20:20 Fenofibrate Nanocrystallized 145 Mg Tablet PO 145 mg HS LYDIA Administration Furosemide 40 mg 04/13/20 09:00 04/24/20 08:55 Furosemide 40 Mg Tablet PO 40 mg DAILY LYDIA Administration Glucagon 1 mg 04/13/20 14:53 Glucagon For Inj 1 Mg Vial IM PRN PRN Hypoglycemia Protocol Glucose 15 gm 04/13/20 14:53 Glucose Oral Gel 15 Gm Of Glucse In 37.5 Gm Tube PO PRN PRN Hypoglycemia Protocol Heparin Sodium (Porcine) 5,000 units 04/12/20 21:00 04/24/20 08:55 Heparin Sodium 5,000 Units/Ml Vial SUB-Q 5,000 units Q12HR LYDIA Administration Dextrose 1,000 mls @ 100 mls/hr 04/13/20 14:53 Dextrose 5% 1,000 Ml IVPB PRN PRN Hypoglycemia Protocol Levetiracetam 500 mg 04/12/20 21:00 04/24/20 08:55 Levetiracetam 500 Mg Tablet PO 500 mg Q12HR LYDIA Administration Lidocaine 1 patch 04/13/20 09:00 04/24/20 08:56 Lidocaine 5% Patch TOPICAL 1 patch DAILY LYDIA Administration Melatonin 3 mg 04/16/20 21:00 04/23/20 20:20 Melatonin 3 Mg Tablet PO 3 mg HS LYDIA Administration Metoprolol Tartrate 50 mg 04/12/20 22:00 04/24/20 13:57 Metoprolol Tartrate 50 Mg Tab PO 50
[2020-04-24 20:15] VITALS: PULSE 87
[2020-04-24] MEDS: TAMSULOSIN HCL 0.4 MG CAPSULE PO (20:15)
[2020-04-24] MEDS: ATORVASTATIN 10 MG TABLET PO (20:15)
[2020-04-24] MEDS: MELATONIN 3 MG TABLET PO (20:15)
[2020-04-24] MEDS: FENOFIBRATE NANOCRYSTALLIZED 145 MG TABLET PO (20:15)
[2020-04-24 20:30] VITALS: BP 127/62; PULSE 87; RESP 18; TEMP 36.6; O2SAT 99
[2020-04-25 05:17] VITALS: BP 120/61; PULSE 64; RESP 20; TEMP 36.4; O2SAT 97
[2020-04-25 05:51] VITALS: PULSE 64
[2020-04-25] MEDS: METOPROLOL TARTRATE 50 MG TAB PO ×3 (05:51→22:14)
[2020-04-25 06:41] LABS: Glucose Point of Care 91 (65-105)
[2020-04-25] MEDS: ESCITALOPRAM OXALATE 10 MG TABLET PO (08:45)
[2020-04-25] MEDS: DOCUSATE SODIUM 100 MG CAPSULE PO ×2 (08:45→20:23)
[2020-04-25] MEDS: PANTOPRAZOLE 40 MG TABLET PO (08:46)
[2020-04-25] MEDS: FUROSEMIDE 40 MG TABLET PO (08:46)
[2020-04-25] MEDS: LIDOCAINE 5% PATCH 1 PATCH TOPICAL (08:46)
[2020-04-25] MEDS: levETIRAcetam 500 MG TABLET PO ×2 (08:46→20:24)
[2020-04-25] MEDS: HEPARIN SODIUM 5,000 UNITS/ML VIAL 5000 UNITS SUB-Q ×2 (08:46→20:25)
[2020-04-25] MEDS: SENNOSIDES 8.6 MG TABLET PO (08:47)
[2020-04-25 14:00] VITALS: BP 127/57; PULSE 71; RESP 20; TEMP 36.9; O2SAT 95
[2020-04-25 15:18] VITALS: PULSE 64
--- NOTE | 2020-04-25 17:47 | WPDNEURORHBP ---
Subjective Date/time seen: 04/25/20 17:47 74 years old with traumatic brain dysfunction in addition to the ventriculomegaly without the diagnosis of a normal pressure hydrocephalus and also history of hypertension, diabetes mellitus, GERD, involved in the physical therapy and occupational therapy, has no specific complaints on today's visit, ambulating up to 150ft with a contact guard using a wheeled walker and has been able to transfer in and out of chairwith standby assistance Functional Status Ambulation Ability Ability to Ambulate 10 Feet: Standby Assistance Ability to Ambulate 50 Feet With 2 Turns: Standby Assistance Ability to Ambulate 150 Feet: Standby Assistance Ambulation Assistive Devices: Walker, Wheeled Transfers Ability Ability to Transfer In/Out of Chair: Independent Exam Narrative: Exam Narrative: on examination awake alert cooperative, speech not dysphasic ,not dysarthric, heart regular with no murmur, lungs clear to auscultation ,,abdomen is soft with normal bowel sounds ,neuro unchanged Objective Data Vital Signs Vital Signs: Vital Signs - 24 hr 04/24/20 20:15 04/24/20 20:30 04/25/20 05:17 Temperature 36.6 C 36.4 C Pulse Rate 87 87 64 Respiratory Rate 18 20 Blood Pressure 127/62 120/61 Pulse Oximetry 99 97 04/25/20 05:51 04/25/20 14:00 04/25/20 15:18 Temperature 36.9 C Pulse Rate 64 71 64 Respiratory Rate 20 Blood Pressure 127/57 L Pulse Oximetry 95 Intake/Output Intake/Output: Intake & Output 04/22/20 04/23/20 04/24/20 04/25/20 23:59 23:59 23:59 23:59 Intake Total 600 1440 720 480 Balance 600 1440 720 480 Meds/Results Medications: Active Medications Generic Name Dose Route Start Last Admin Trade Name Freq PRN Reason Stop Dose Admin Acetaminophen 500 mg 04/12/20 18:30 04/24/20 13:57 Acetaminophen 500 Mg Tablet PO 500 mg Q6H PRN Administration Pain, Mild 1-3 Atorvastatin Calcium 10 mg 04/12/20 21:00 04/24/20 20:15 Atorvastatin 10 Mg Tablet PO 10 mg HS LYDIA Administration Bisacodyl 10 mg 04/12/20 18:30 Bisacodyl 10 Mg Suppository RECTAL DAILY PRN Constipation Calcium Carbonate 500 mg 04/12/20 18:30 04/24/20 23:39 Calcium Carbonate (Tums) 500 Mg (200 Mg Elemental) PO 500 mg TID PRN Administration Indigestion Dextrose 12.5 gm 04/13/20 14:53 Dextrose 50% 25 Gm/50 Ml Syringe IV PUSH PRN PRN Hypoglycemia Protocol Docusate Sodium 100 mg 04/12/20 21:00 04/25/20 08:45 Docusate Sodium 100 Mg Capsule PO 100 mg Q12HR LYDIA Administration Escitalopram Oxalate 10 mg 04/13/20 09:00 04/25/20 08:45 Escitalopram Oxalate 10 Mg Tablet PO 10 mg DAILY LYDIA Administration Fenofibrate 145 mg 04/12/20 21:00 04/24/20 20:15 Fenofibrate Nanocrystallized 145 Mg Tablet PO 145 mg HS LYDIA Administration Furosemide 40 mg 04/13/20 09:00 04/25/20 08:46 Furosemide 40 Mg Tablet PO 40 mg DAILY LYDIA Administration Glucagon 1 mg 04/13/20 14:53 Glucagon For Inj 1 Mg Vial IM PRN PRN Hypoglycemia Protocol Glucose 15 gm 04/13/20 14:53 Glucose Oral Gel 15 Gm Of Glucse In 37.5 Gm Tube PO PRN PRN Hypoglycemia Protocol Heparin Sodium (Porcine) 5,000 units 04/12/20 21:00 04/25/20 08:46 Heparin Sodium 5,000 Units/Ml Vial SUB-Q 5,000 units Q12HR LYDIA Administration Dextrose 1,000 mls @ 100 mls/hr 04/13/20 14:53 Dextrose 5% 1,000 Ml IVPB PRN PRN Hypoglycemia Protocol Levetiracetam 500 mg 04/12/20 21:00 04/25/20 08:46 Levetiracetam 500 Mg Tablet PO 500 mg Q12HR LYDIA Administration Lidocaine 1 patch 04/13/20 09:00 04/25/20 08:46 Lidocaine 5% Patch TOPICAL 1 patch DAILY LYDIA Administration Melatonin 3 mg 04/16/20 21:00 04/24/20 20:15 Melatonin 3 Mg Tablet PO 3 mg HS LYDIA Administration Metoprolol Tartrate 50 mg 04/12/20 22:00 04/25/20 15:18 Metoprolol Tartrate 50 Mg Tab PO 50 mg
[2020-04-25] MEDS: ATORVASTATIN 10 MG TABLET PO (20:23)
[2020-04-25] MEDS: FENOFIBRATE NANOCRYSTALLIZED 145 MG TABLET PO (20:24)
[2020-04-25] MEDS: TAMSULOSIN HCL 0.4 MG CAPSULE PO (20:24)
[2020-04-25] MEDS: MELATONIN 3 MG TABLET PO (20:24)
[2020-04-25 22:00] VITALS: BP 118/63; PULSE 76; RESP 20; TEMP 37.3; O2SAT 96
[2020-04-25 22:14] VITALS: PULSE 76
[2020-04-25] MEDS: CALCIUM CARBONATE (TUMS) 500 MG (200 MG ELEMENTAL) PO (22:14)
[2020-04-26 05:39] VITALS: PULSE 66
[2020-04-26] MEDS: METOPROLOL TARTRATE 50 MG TAB PO ×3 (05:39→21:50)
[2020-04-26 06:00] VITALS: BP 126/66; PULSE 66; RESP 18; TEMP 36.6; O2SAT 98
[2020-04-26 06:47] LABS: Glucose Point of Care 115 (65-105)
[2020-04-26] MEDS: ESCITALOPRAM OXALATE 10 MG TABLET PO (09:04)
[2020-04-26] MEDS: FUROSEMIDE 40 MG TABLET PO (09:04)
[2020-04-26] MEDS: DOCUSATE SODIUM 100 MG CAPSULE PO ×2 (09:04→20:19)
[2020-04-26] MEDS: HEPARIN SODIUM 5,000 UNITS/ML VIAL 5000 UNITS SUB-Q ×2 (09:05→20:20)
[2020-04-26] MEDS: levETIRAcetam 500 MG TABLET PO ×2 (09:06→20:20)
[2020-04-26] MEDS: LIDOCAINE 5% PATCH 1 PATCH TOPICAL (09:06)
[2020-04-26] MEDS: PANTOPRAZOLE 40 MG TABLET PO (09:06)
[2020-04-26] MEDS: SENNOSIDES 8.6 MG TABLET PO (09:15)
[2020-04-26 14:00] VITALS: BP 118/57; PULSE 66; RESP 16; TEMP 36.8; O2SAT 100
[2020-04-26 15:09] VITALS: PULSE 66
--- NOTE | 2020-04-26 17:00 | PC.NURSE ---
Using new pharmacy, planned discharge on 04/28 and are closed on the weekend. Went over medications with and called medications that are needed into [facility]. The pharmacist questioned Rolan's dose of Metoprolol, explained this is his current dosage (50mg Q8) and to continue.
[2020-04-26] MEDS: FENOFIBRATE NANOCRYSTALLIZED 145 MG TABLET PO (20:19)
[2020-04-26] MEDS: ATORVASTATIN 10 MG TABLET PO (20:19)
[2020-04-26] MEDS: MELATONIN 3 MG TABLET PO (20:20)
[2020-04-26] MEDS: TAMSULOSIN HCL 0.4 MG CAPSULE PO (20:20)
[2020-04-26 21:03] VITALS: BP 122/56; PULSE 74; RESP 18; TEMP 36.8; O2SAT 97
[2020-04-26 21:50] VITALS: PULSE 74
[2020-04-26] MEDS: CALCIUM CARBONATE (TUMS) 500 MG (200 MG ELEMENTAL) PO (21:51)
[2020-04-27 04:54] LABS: Basophils Absolute Auto 0.1 K/mm3 (0.0-0.1); Basophils Percent Auto 0.7 % (0.2-1.2); Eosinophils Absolute Auto 0.3 K/mm3 (0-0.3); Eosinophils Percent Auto 4.3 % (0-4.4); Hematocrit 31.7 % (42.0-52.0); Hemoglobin 9.9 g/dL (14.0-18.0); Immature Granulocyte Absolute 0.09 K/mm3 (0.00-0.031); Immature Granulocyte Percent A 1.3 % (0-0.5); Lymphocytes Absolute Auto 2.19 K/mm3 (0.9-3.2); Lymphocytes Percent Auto 32.4 % (18.3-44.2); Mean Corpuscular HGB Conc 31.2 g/dl (32-36); Mean Corpuscular Hemoglobin 28.4 pg (26-34); Mean Corpuscular Volume 91.1 fl (80-100); Mean Platelet Volume 8.9 fl (7.4-10.4); Monocytes Absolute Auto 0.7 K/mm3 (0.1-0.6); Monocytes Percent Auto 10.1 % (2.6-8.5); Neutrophils Absolute Auto 3.5 K/mm3 (1.3-6.7); Neutrophils Percent Auto 51.2 % (45.5-73.1); Platelet Count Result 318 k/mm3 (150-375); Red Blood Count 3.48 M/mm3 (4.6-6.20); Red Cell Distribution Width 14.6 % (11.5-14.5); White Blood Count 6.8 K/mm3 (4.5-10.0)
[2020-04-27 05:12] VITALS: BP 117/49; PULSE 63; RESP 18; TEMP 36.8; O2SAT 94
[2020-04-27 05:16] LABS: Anion Gap 5 mmol/L (8-16); Blood Urea Nitrogen 15 mg/dL (9-20); Calcium 8.8 mg/dL (8.4-10.2); Carbon Dioxide 35 mmol/L (22-30); Chloride 99 mmol/L (98-107); Estimated CRCL calculation 75 ml/min; Estimated Glomerular Filt Rate > 60; Glucose 111 mg/dL (75-110); Sodium 139 mmol/L (137-145)
[2020-04-27 05:22] VITALS: PULSE 63
[2020-04-27] MEDS: METOPROLOL TARTRATE 50 MG TAB PO ×3 (05:22→19:43)
[2020-04-27 06:54] LABS: Glucose Point of Care 96 (65-105)
[2020-04-27] MEDS: DOCUSATE SODIUM 100 MG CAPSULE PO ×2 (08:58→19:42)
[2020-04-27] MEDS: FUROSEMIDE 40 MG TABLET PO (08:59)
[2020-04-27] MEDS: levETIRAcetam 500 MG TABLET PO ×2 (08:59→19:39)
[2020-04-27] MEDS: ESCITALOPRAM OXALATE 10 MG TABLET PO (08:59)
[2020-04-27] MEDS: HEPARIN SODIUM 5,000 UNITS/ML VIAL 5000 UNITS SUB-Q ×2 (08:59→19:42)
[2020-04-27] MEDS: PANTOPRAZOLE 40 MG TABLET PO (09:00)
[2020-04-27] MEDS: LIDOCAINE 5% PATCH 1 PATCH TOPICAL (09:00)
[2020-04-27] MEDS: SENNOSIDES 8.6 MG TABLET PO (09:03)
--- NOTE | 2020-04-27 10:55 | WPDNEURORHBP ---
Subjective Date/time seen: 04/27/20 10:55 74 years old admitted to the rehab floor of [facility] with the diagnosis of traumatic brain dysfunction in addition to the ventriculomegaly without the diagnosis of normal pressure hydrocephalus and additional diagnoses of hypertension diabetes mellitus GERD he has been involved the physical therapy and occupational therapy on a regular basis most recently he has been able to ambulate up to 150ft standby assistance using the wheel walker Functional Status Ambulation Ability Ability to Ambulate 10 Feet: Standby Assistance Ability to Ambulate 50 Feet With 2 Turns: Standby Assistance Ability to Ambulate 150 Feet: Standby Assistance Ambulation Assistive Devices: Walker, Wheeled Transfers Ability Ability to Transfer In/Out of Chair: Independent Exam Narrative: Exam Narrative: examination today revealed him to be awake alert cooperative in no obvious acute distress, ear nose throat examination normal, neck is supple with no lymphadenopathy or restriction of the range of motion, heart regular with no murmur, lungs clear to auscultation with no rhonchi or crepitation, abdomen is soft with normal bowel sounds and no tenderness, neurological examination essentially unchanged. Objective Data Vital Signs Vital Signs: Vital Signs - 24 hr 04/26/20 14:00 04/26/20 15:09 04/26/20 21:03 Temperature 36.8 C 36.8 C Pulse Rate 66 66 74 Respiratory Rate 16 18 Blood Pressure 118/57 L 122/56 L Pulse Oximetry 100 97 04/26/20 21:50 04/27/20 05:12 04/27/20 05:22 Temperature 36.8 C Pulse Rate 74 63 63 Respiratory Rate 18 Blood Pressure 117/49 L Pulse Oximetry 94 Intake/Output Intake/Output: Intake & Output 04/24/20 04/25/20 04/26/20 04/27/20 23:59 23:59 23:59 23:59 Intake Total 564 540 7203 240 Balance 896 739 8039 240 Meds/Results Medications: Active Medications Generic Name Dose Route Start Last Admin Trade Name Freq PRN Reason Stop Dose Admin Acetaminophen 500 mg 04/12/20 18:30 04/24/20 13:57 Acetaminophen 500 Mg Tablet PO 500 mg Q6H PRN Administration Pain, Mild 1-3 Atorvastatin Calcium 10 mg 04/12/20 21:00 04/26/20 20:19 Atorvastatin 10 Mg Tablet PO 10 mg HS LYDIA Administration Bisacodyl 10 mg 04/12/20 18:30 Bisacodyl 10 Mg Suppository RECTAL DAILY PRN Constipation Calcium Carbonate 500 mg 04/12/20 18:30 04/26/20 21:51 Calcium Carbonate (Tums) 500 Mg (200 Mg Elemental) PO 500 mg TID PRN Administration Indigestion Dextrose 12.5 gm 04/13/20 14:53 Dextrose 50% 25 Gm/50 Ml Syringe IV PUSH PRN PRN Hypoglycemia Protocol Docusate Sodium 100 mg 04/12/20 21:00 04/27/20 08:58 Docusate Sodium 100 Mg Capsule PO 100 mg Q12HR LYDIA Administration Escitalopram Oxalate 10 mg 04/13/20 09:00 04/27/20 08:59 Escitalopram Oxalate 10 Mg Tablet PO 10 mg DAILY LYDIA Administration Fenofibrate 145 mg 04/12/20 21:00 04/26/20 20:19 Fenofibrate Nanocrystallized 145 Mg Tablet PO 145 mg HS LYDIA Administration Furosemide 40 mg 04/13/20 09:00 04/27/20 08:59 Furosemide 40 Mg Tablet PO 40 mg DAILY LYDIA Administration Glucagon 1 mg 04/13/20 14:53 Glucagon For Inj 1 Mg Vial IM PRN PRN Hypoglycemia Protocol Glucose 15 gm 04/13/20 14:53 Glucose Oral Gel 15 Gm Of Glucse In 37.5 Gm Tube PO PRN PRN Hypoglycemia Protocol Heparin Sodium (Porcine) 5,000 units 04/12/20 21:00 04/27/20 08:59 Heparin Sodium 5,000 Units/Ml Vial SUB-Q 5,000 units Q12HR LYDIA Administration Dextrose 1,000 mls @ 100 mls/hr 04/13/20 14:53 Dextrose 5% 1,000 Ml IVPB PRN PRN Hypoglycemia Protocol Levetiracetam 500 mg 04/12/20 21:00 04/27/20 08:59 Levetiracetam 500 Mg Tablet PO 500 mg Q12HR LYDIA Administration Lidocaine 1 patch 04/13/20 09:00 04/27/20 09:00 Lidocaine 5% Patch TOPICAL 1 patch DAILY LYDIA Administrat
--- NOTE | 2020-04-27 12:25 | PCDIET ---
Nutrition Follow-Up Complete: No nutrition diagnosis at this time. Nutrition Goal: Patient to consume 75% of meals or greater. Goal met. Patient consuming 100% of most meals on regular diet which is appropriate. Last recorded weight is 89.4 kg. Recommend obtaining new weight. Bowel Motility: +BM today. Labs Reviewed: Hgb (9.9), Hct (31.7), Glu (111) Meds Noted: Lipitor, Colace, Lasix, Protonix, Miralax, Senna Additional Notes: Documented scabs to bilateral feet. No pressure sores reported. Will continue to monitor with same goal. Nutrition Monitoring and Evaluation: Follow up in 7 days.
[2020-04-27 13:58] VITALS: PULSE 73
[2020-04-27 14:00] VITALS: BP 116/59; PULSE 73; RESP 20; TEMP 36.7; O2SAT 99
[2020-04-27] MEDS: TAMSULOSIN HCL 0.4 MG CAPSULE PO (19:39)
[2020-04-27] MEDS: MELATONIN 3 MG TABLET PO (19:41)
[2020-04-27] MEDS: FENOFIBRATE NANOCRYSTALLIZED 145 MG TABLET PO (19:42)
[2020-04-27 19:43] VITALS: PULSE 76
[2020-04-27] MEDS: ATORVASTATIN 10 MG TABLET PO (19:43)
[2020-04-27] MEDS: CALCIUM CARBONATE (TUMS) 500 MG (200 MG ELEMENTAL) PO (19:46)
[2020-04-27 22:00] VITALS: BP 127/55; PULSE 73; RESP 18; TEMP 37.1; O2SAT 99
[2020-04-28 05:44] VITALS: PULSE 72
[2020-04-28] MEDS: METOPROLOL TARTRATE 50 MG TAB PO ×2 (05:44→14:49)
[2020-04-28 06:00] VITALS: BP 120/65; PULSE 71; RESP 17; TEMP 36.5; O2SAT 99
[2020-04-28 06:29] LABS: Glucose Point of Care 110 (65-105)
[2020-04-28] MEDS: ESCITALOPRAM OXALATE 10 MG TABLET PO (07:55)
[2020-04-28] MEDS: FUROSEMIDE 40 MG TABLET PO (07:55)
[2020-04-28] MEDS: DOCUSATE SODIUM 100 MG CAPSULE PO (07:55)
[2020-04-28] MEDS: levETIRAcetam 500 MG TABLET PO (07:56)
[2020-04-28] MEDS: HEPARIN SODIUM 5,000 UNITS/ML VIAL 5000 UNITS SUB-Q (07:56)
[2020-04-28] MEDS: LIDOCAINE 5% PATCH 1 PATCH TOPICAL (07:56)
[2020-04-28] MEDS: PANTOPRAZOLE 40 MG TABLET PO (07:56)
[2020-04-28] MEDS: SENNOSIDES 8.6 MG TABLET PO (08:00)
[2020-04-28] MEDS: CALCIUM CARBONATE (TUMS) 500 MG (200 MG ELEMENTAL) PO (09:07)
[2020-04-28 14:00] VITALS: BP 107/57; PULSE 70; RESP 18; TEMP 37.1; O2SAT 99
[2020-04-28 14:49] VITALS: PULSE 70
--- NOTE | 2020-05-03 15:19 | PM.DS ---
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 During the hospitalization was involved in the physical therapy and occupational therapy on a regular basis and was making gradual but significant improvement. DS: Summary Time Spent with Patient Time attestation: Total time spent providing and/or coordinating discharge services: Exam Narrative: Exam Narrative: At the time of discharge examination revealed awake alert cooperative in no obvious acute distress his speech not dysphasic no dysarthric neck is supple with full range of motions no cervical bruit heart regular with no murmur lungs clear with no rhonchi or crepitations abdomen is soft nontender with normal bowel sounds and neurological examination essentially unchanged Discharge Plan Discharge Attending physician on discharge: Isael Haley Discharging Clinician: Lenin Trinh Anticipated Discharge Date/Time: 04/28/20 11:13 Patient Disposition: Home Health Service Activity: as tolerated Diet: regular Discharge Instructions: Per Care Coordination: Home Health services were arranged through [facility]. [facility] can be contacted at [phone]. Please fax discharge instructions to [facility] at [phone]. Patient Instructions: Antibiotic Form, Heparin (By injection), Pain Management in Older Adults (DC) Stand Alone Forms: General Discharge Information Follow-up/Referrals: Ana María Beckham [Other] (May 09 at 11:00 AM) MELIA CORONADO [Other] (May 07 at 0730) Tisha,Kimo Conrad MD [Non-Staff] - (ThuDecember 19 at 12noon) Yosef,Dilshad Linares MD [Primary Care Provider] - (schedule an appointment jacinto within one week after d/c from rehab center) Discharge Medications: New melatonin 3 mg Tablet 3 mg PO HS Qty: 30 RF: 0 ondansetron 4 mg Tablet,Disintegrating 4 mg PO Q6H PRN (Reason: Nausea And Vomiting) Qty: 30 RF: 0 heparin (porcine) 5,000 unit/mL Solution 5,000 units subcut Q12HR Qty: 15 RF: 0 Continued furosemide [Lasix] 40 mg Tablet 40 mg PO DAILY Qty: 30 RF: 0 sennosides [Senna Lax] 8.6 mg Tablet 8.6 mg PO DAILY Qty: 30 RF: 0 lidocaine [Blue-Emu Lidocaine Patch] 4 % Adhesive Patch,Medicated 1 patch TOPICAL Q24H Qty: 30 RF: 0 polyethylene glycol 3350 17 gram Powder In Packet 17 g PO DAILY PRN (Reason: Constipation) Qty: 30 RF: 0 atorvastatin 10 mg Tablet 10 mg PO HS Qty: 30 RF: 0 levetiracetam [Keppra] 500 mg Tablet 500 mg PO BID Qty: 60 RF: 0 hydrocodone-acetaminophen 10-325 mg Tablet 1 tablet PO Q4H PRN (Reason: Pain (Scale Score 7-10)) Qty: 50 RF: 0 pantoprazole 40 mg Tablet,Delayed Release (Dr/Ec) 40 mg PO QAM Qty: 30 RF: 0 metoprolol tartrate 50 mg Tablet 50 mg PO Q8H Qty: 90 RF: 0 docusate sodium 100 mg Capsule 100 mg PO BID Qty: 60 RF: 0 escitalopram oxalate [Lexapro] 10 mg Tablet 10 mg PO DAILY Qty: 30 RF: 0 fenofibrate nanocrystallized [Tricor] 145 mg Tablet 145 mg PO HS Qty: 30 RF: 0 Changed tamsulosin 0.4 mg capsule 0.4 mg PO HS Qty: 30 RF: 0 calcium carbonate 500 mg calcium (1,250 mg) tablet,chewable 500 mg PO TID PRN (Reason: Indigestion) Qty: 90 RF: 0 Discontinued bisacodyl [Dulcolax (bisacod
== END 2020-04-28 15:05 | disposition home health service (06) | DRG 949 ==
PROVIDERS: Admitting Provider Psychiatry & Neurology Neurology; PCP Family Medicine; Visit Provider Psychiatry & Neurology Neurology
DX: Z48.811 Encounter for surgical aftercare following surgery on the nervous system (principal); I26.99 Other pulmonary embolism without acute cor pulmonale; I69.251 Hemiplegia and hemiparesis following other nontraumatic intracranial hemorrhage affecting right dominant side; G91.2 (Idiopathic) normal pressure hydrocephalus; I82.493 Acute embolism and thrombosis of other specified deep vein of lower extremity, bilateral; G93.89 Other specified disorders of brain; D64.9 Anemia, unspecified; E78.5 Hyperlipidemia, unspecified; E11.9 Type 2 diabetes mellitus without complications; I10 Essential (primary) hypertension; K21.9 Gastro-esophageal reflux disease without esophagitis; M47.816 Spondylosis without myelopathy or radiculopathy, lumbar region; N40.0 Benign prostatic hyperplasia without lower urinary tract symptoms; Z95.828 Presence of other vascular implants and grafts; Z98.2 Presence of cerebrospinal fluid drainage device; Z79.84 Long term (current) use of oral hypoglycemic drugs
CPT/HCPCS: 36415; 72100; 74018; 80048; 81001; 85025; 97110; 97112; 97116; 97161; 97167; 97530; 97535; 97542; A9270; J1644